=== PATIENT | female | born 1980 | race Caucasian/White ===

== ENCOUNTER 2016-07-02 10:00 | Emergency (ER) | payer OTHER ==
[2016-07-02 10:13] VITALS: RESP 16
--- NOTE | 2016-07-02 10:44 | ED ---
General Adult HPI - General Chief complaint: Chest Pain Stated complaint: left side pain, shoulder,chest pain x 3 days Time Seen by Provider: 07/02/16 10:15 Source: patient, RN notes reviewed Mode of arrival: ambulatory Limitations: no limitations - History of Present Illness Initial comments: Chief complaint and history of present illness this is a 36-year-old female complaint of pain to her left anterior and lower lateral rib cage for 3 days. Increasing over the past 3 days. Painful to take a deep breath painful to push on the area no rashes noted. She can't think of any particular injury. He does smoke she is on control. - Related Data Previous Rx's Medication Instructions Recorded Hydrocodone/Acetaminophen [[place] 1 each PO Q6HR PRN #20 tab 07/02/16 5-325] Ibuprofen [Motrin] 600 mg PO Q6HR PRN #20 tab 07/02/16 methylPREDNISolone Dose Pack 4 mg PO DIRECTED #21 package 07/02/16 [Medrol Dose Pack] Allergies Allergy/AdvReac Type Severity Reaction Status Date / Time Sulfa (Sulfonamide Allergy Anaphylaxis Verified 07/02/16 10:13 Antibiotics) Review of Systems ROS Statement: Those systems with pertinent positive or pertinent negative responses have been documented in the HPI. Review of systems no visual acuity changes no headache no neck pain patient has pain with breathing the left side of the chest as noted above feel short of breath because of the pain with difficulty breathing twisting turning moving bending especially coughing. No GI/ problems no complaint of a neuro deficits. No change in appetite. All systems were otherwise reviewed. Past medical problems significant for endometriosis, thyroid disorder which corrected itself after . She's had 2 laparoscopic surgeries for endometriosis and 2 C-sections. Family history unknown but does not know of any cancers. Patient does smoke strongly encouraged to stop she has ALLERGIES to sulfa. She does drink alcohol. 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 ROS Other: All systems not noted in ROS Statement are negative. Past Medical History Past Medical History: Thyroid Disorder Additional Past Medical History / Comment(s): Graves disease, endometriosis History of Any Multi-Drug Resistant Organisms: None Reported Past Surgical History: Section Past Psychological History: Depression Smoking Status: Current every day smoker Past Alcohol Use History: Occasional Past Drug Use History: None Reported General Exam - General Exam Comments Initial Comments: General: The patient is awake and alert, has acute discomfort with deep breathing and palpation of the left breast area. Vital signs shows temperature 98.5 pulse 89 respiratory rate 16 pulse 99% on room air. Blood pressure 134/84. Mildly elevated systolic diastolic noted patient will be referred to her family physician this week. Eye: Pupils are equal, round and reactive to light, extra-ocular movements are intact ; there is normal conjunctiva bilaterally. No signs of icterus. Ears, nose, mouth and throat: There are moist mucous membranes and no oral lesions. Neck: The neck is supple, there is no tenderness . No anterior cervical lymphadenopathy. Cardiovascular: There is a regular rate and rhythm. No murmur, rub or gallop is appreciated. Respiratory: Lungs are clear to auscultation, respirations are non-labored, breath sounds are equal. No wheezes, stridor, rales, or rhonchi. Pain with palpation of the anterior chest wall, no rashes noted. Shingles discussed. Splinting does not decrease the pain. Palpation does increase the pain. Coughing and deep breathing increases pain to the left chest area encircling the breast. No rash noted per patient. Gastrointestinal: Soft, non-distended, non-tender abdomen without masses or organomegaly noted. Back: There is no tenderness to palpation in the midline. There is no obvious deformity. No rashes noted. Musculoskeletal: Normal ROM, no tenderness, There is no pedal edema. There is no calf tenderness or swelling. Sensation intact. Pulses equal bilaterally 2+. Neurological: No evidence of her complaints of any neuro deficits. Skin: Skin is warm and dry and no rashes or lesions are noted. Limitations: no limitations Course Vital Signs 07/02/16 10:09 Temperature 98.5 F Pulse Rate 89 Respiratory 16 Rate Blood Pressure 134/84 O2 Sat by Pulse 99 Oximetry Medical Decision Making - Medical Decision Making Medical decision making; chest x-ray and left rib series were done and reviewed by radiologist his findings are the lungs are clear. Pleural spaces are clear. Heart size is normal. There is no pneumothorax. I do not see any displaced rib fracture. As reported by Dr. Buck ; final impression normal chest and left ribs. We discussed pleuritic pain as well as nondisplaced rib fracture and/or costochondritis. The patient will this time be placed on Medrol Dosepak and pain medication. Advised to splint the area as directed as needed. There is no signs of infection productive cough or pneumonia so no antibiotic be prescribed. Patient advised to follow-up with her family physician. Repeat chest x-ray may be necessary in a week to 10 days if pain persists. - Lab Data Lab Results 07/02/16 07/02/16 Range/Units 10:45 11:04 D-Dimer 0.28 (<0.60) mg/L FEU Urine HCG, Qual Not Detected (Not Detectd) Disposition Clinical Impression: Costochondritis, acute Disposition: HOME SELF-CARE Condition: Stable Instructions: Costochondritis (ED), Pleurisy (ED) Additional Instructions: Take medications as directed. Splint the area of the hand for comfort. Repeat chest x-ray may be necessary if still having pain in the week to 10 days from now. Follow with family physician Prescriptions: Hydrocodone/Acetaminophen [[place] 5-325] 1 each PO Q6HR PRN #20 tab PRN Reason: Pain Ibuprofen [Motrin] 600 mg PO Q6HR PRN #20 tab PRN Reason: Pain methylPREDNISolone Dose Pack [Medrol Dose Pack] 4 mg PO DIRECTED #21 package Time of Disposition: 11:59
--- NOTE | 2016-07-02 11:50 | XR ---
EXAMINATION TYPE: XR ribs LT w pa chest x-ray DATE OF EXAM ORDERED: 07/02/2016 11:42 AM HISTORY: Left-sided rib pain with breathing. COMPARISON: None. FINDINGS: The lungs are clear. Pleural space are clear. Heart size is normal. There is no pneumothor ax. I do not see a displaced rib fracture. IMPRESSION: NORMAL CHEST AND LEFT RIBS.
[2016-07-02 12:16] VITALS: BP 120/70; PULSE 78; TEMP 97.8
== END 2016-07-02 12:15 | disposition home or self-care (01) ==
LOC: EC 10:00
DX: M94.0 Chondrocostal junction syndrome [Tietze] (principal); M25.512 Pain in left shoulder; F17.200 Nicotine dependence, unspecified, uncomplicated; Z79.899 Other long term (current) drug therapy; Z88.2 Allergy status to sulfonamides
CPT/HCPCS: 36415; 81025; 85379; 99285

== ENCOUNTER 2017-09-03 21:22 | Emergency (ER) | payer OTHER ==
[2017-09-03] MEDS ORDERED: ONDANSETRON ODT 4 MG TAB PO STA (21:41)
--- NOTE | 2017-09-03 21:47 | ED ---
Abdominal Pain HPI - General Source: patient Mode of arrival: ambulatory Limitations: no limitations - History of Present Illness MD Complaint: abdominal pain -: days(s) (2) Location: epigastric Quality: aching, sharp Consistency: constant Improves With: nothing Worsens With: movement Context: foreign travel (Patient was in the vomitus 2 weeks ago) Associated Symptoms: nausea, vomiting <Hawa Man - Last Filed: 09/03/17 23:04> <Pavel Bell - Last Filed: 09/03/17 23:21> - General Chief Complaint: Abdominal Pain Stated Complaint: vomiting/rib pain Time Seen by Provider: 09/03/17 21:34 - History of Present Illness Initial Comments: 37-year-old female presents with epigastric pain for 2 days. Patient states is getting progressively worse in the she's tried multiple [id number] medications such as Tums. Patient states tonight she ended up feeling increase in pain and vomiting 3 times. Patient states it's pain in the midepigastric region with no radiation. No change of bowels no fevers. Patient does have history of left breast Surgery for endometriosis in 2 sections. No vaginal discharge patient states her menstrual cycles within normal limits. No fevers. No chest pain or shortness of breath. (Hawa Man) - Related Data Previous Rx's Medication Instructions Recorded Famotidine [Pepcid] 20 mg PO BID #14 tablet 09/03/17 Allergies Allergy/AdvReac Type Severity Reaction Status Date / Time Sulfa (Sulfonamide Allergy Anaphylaxis Verified 09/03/17 21:27 Antibiotics) Review of Systems ROS Other: All systems not noted in ROS Statement are negative. Constitutional: Denies: fever Respiratory: Denies: cough Gastrointestinal: Reports: abdominal pain (Epigastric), nausea, vomiting. Denies: diarrhea, constipation Genitourinary: Denies: urgency, dysuria Musculoskeletal: Denies: back pain <Hawa Man - Last Filed: 09/03/17 23:04> ROS Other: All systems not noted in ROS Statement are negative. <Pavel Bell - Last Filed: 09/03/17 23:21> ROS Statement: Those systems with pertinent positive or pertinent negative responses have been documented in the HPI. Past Medical History Past Medical History: Thyroid Disorder Additional Past Medical History / Comment(s): Graves disease, endometriosis History of Any Multi-Drug Resistant Organisms: None Reported Past Surgical History: Section Additional Past Surgical History / Comment(s): laporoscopy for endometrosis Past Psychological History: Depression Smoking Status: Current every day smoker Past Alcohol Use History: Occasional Past Drug Use History: None Reported <Hawa Man - Last Filed: 09/03/17 23:04> General Exam Limitations: no limitations General appearance: alert, in no apparent distress ENT exam: Present: normal exam, mucous membranes moist Respiratory exam: Present: normal lung sounds bilaterally. Absent: respiratory distress, wheezes, rales, rhonchi, stridor Cardiovascular Exam: Present: regular rate, normal rhythm, normal heart sounds. Absent: systolic murmur, diastolic murmur, rubs, gallop, clicks GI/Abdominal exam: Present: soft, tenderness (Epigastric), normal bowel sounds. Absent: distended, guarding, rebound, rigid Back exam: Present: normal inspection Neurological exam: Present: alert, oriented X3, CN II-XII intact Psychiatric exam: Present: normal affect, normal mood Skin exam: Present: warm, dry, intact, normal color. Absent: rash <Hawa Man - Last Filed: 09/03/17 23:04> Vital Signs 09/03/17 21:25 Temperature 98.2 F Pulse Rate 80 Respiratory 18 Rate Blood Pressure 120/80 O2 Sat by Pulse 99 Oximetry Medical Decision Making - Lab Data Result diagrams: 09/03/17 21:52 09/03/17 21:52 <Hawa Man - Last Filed: 09/03/17 23:04> - Lab Data Result diagrams: 09/03/17 21:52 09/03/17 21:52 <Pavel Bell - Last Filed: 09/03/17 23:21> - Medical Decision Making Discussed with Dr. Villalobos patient was evaluated by Dr. Villalobos we'll get GI cocktail. After 15-20 minutes patient did not have any relief from the GI cocktail, however her nausea has gone away with the Zofran. All lab work that has come back been done is normal. H. pylori will be a send out test will not get back right Away. Patient opted to get a CAT scan of her abdomen. Discussed at this time that she may need to follow up with outpatient GI for possible scope in the future. at 2304 I transferred care to Dr. Bell due to my shift ending (Hawa Man) - Lab Data Lab Results 09/03/17 09/03/17 Range/Units 21:52 21:52 WBC 10.4 (3.8-10.6) k/uL RBC 4.86 (3.80-5.40) m/uL Hgb 15.0 (11.4-16.0) gm/dL Hct 43.5 (34.0-46.0) % MCV 89.6 (80.0-100.0) fL MCH 30.8 (25.0-35.0) pg MCHC 34.4 (31.0-37.0) g/dL RDW 12.7 (11.5-15.5) % Plt Count 234 (150-450) k/uL Neutrophils % 76 % Lymphocytes % 18 % Monocytes % 4 % Eosinophils % 1 % Basophils % 1 % Neutrophils # 7.9 H (1.3-7.7) k/uL Lymphocytes # 1.8 (1.0-4.8) k/uL Monocytes # 0.4 (0-1.0) k/uL Eosinophils # 0.1 (0-0.7) k/uL Basophils # 0.1 (0-0.2) k/uL Sodium 141 (137-145) mmol/L Potassium 3.9 (3.5-5.1) mmol/L Chloride 99 (98-107) mmol/L Carbon Dioxide 28 (22-30) mmol/L Anion Gap 14 mmol/L BUN 15 (7-17) mg/dL Creatinine 0.60 (0.52-1.04) mg/dL Est GFR (CKD-EPI)AfAm >90 (>60 ml/min/1.73 sqM) Est GFR (CKD-EPI)NonAf >90 (>60 ml/min/1.73 sqM) Glucose 105 H (74-99) mg/dL Calcium 10.1 (8.4-10.2) mg/dL Total Bilirubin 0.4 (0.2-1.3) mg/dL AST 23 (14-36) U/L ALT 29 (9-52) U/L Alkaline Phosphatase 59 (38-126) U/L Total Protein 7.3 (6.3-8.2) g/dL Albumin 4.6 (3.5-5.0) g/dL Amylase 38 (30-110) U/L Lipase 41 (23-300) U/L Disposition Is patient prescribed a controlled substance at d/c from ED?: No <Hawa Man - Last Filed: 09/03/17 23:04> Is patient prescribed a controlled substance at d/c from ED?: No <Pavel Bell - Last Filed: 09/03/17 23:21> Clinical Impression: Epigastric abdominal pain, Nausea & vomiting Disposition: HOME SELF-CARE Condition: Good Instructions: Acute Nausea and Vomiting (ED), Abdominal Pain (ED) Prescriptions: Famotidine [Pepcid] 20 mg PO BID #14 tablet Referrals: None,Stated [Primary Care Provider] - 1-2 days Rick Arellano MD [STAFF PHYSICIAN] - 1-2 days Zo Austin MD [STAFF PHYSICIAN] - 1-2 days
[2017-09-03] MEDS ORDERED: SODIUM CHLORIDE 0.9% 1,000 ML IV STA (22:06)
[2017-09-03] MEDS ORDERED: MAG HYDROX/AL HYDROX/SIMETH 30 ML, HYOSCYAMINE ELIXIR 10 ML, CIMETIDINE HCL 300 MG, LID... PO STA ×4 (22:17)
[2017-09-03 22:29] LABS: Basophils # (A) 0.1 k/uL (0-0.2); Basophils % (A) 1 %; Eosinophils # (A) 0.1 k/uL (0-0.7); Eosinophils % (A) 1 %; HCT 43.5 % (34.0-46.0); Lymphocytes # (A) 1.8 k/uL (1.0-4.8); Lymphocytes % (A) 18 %; MCH 30.8 pg (25.0-35.0); MCHC 34.4 g/dL (31.0-37.0); MCV 89.6 fL (80.0-100.0); Mean Platelet Volume 7.2; Monocytes # (A) 0.4 k/uL (0-1.0); Monocytes % (A) 4 %; Neutrophils # (A) 7.9 k/uL (1.3-7.7); Neutrophils % (A) 76 %; Platelet Count 234 k/uL (150-450); RBC 4.86 m/uL (3.80-5.40); RDW 12.7 % (11.5-15.5); WBC 10.4 k/uL (3.8-10.6)
[2017-09-03 22:39] LABS: ALT 29 U/L (9-52); AST 23 U/L (14-36); Albumin 4.6 g/dL (3.5-5.0); Alkaline Phosphatase 59 U/L (38-126); Amylase 38 U/L (30-110); Anion Gap 14 mmol/L; Blood Urea Nitrogen 15 mg/dL (7-17); Calcium 10.1 mg/dL (8.4-10.2); Carbon Dioxide 28 mmol/L (22-30); Chloride 99 mmol/L (98-107); Glucose 105 mg/dL (74-99); Lipase 41 U/L (23-300); Potassium 3.9 mmol/L (3.5-5.1); Sodium 141 mmol/L (137-145); Total Bilirubin 0.4 mg/dL (0.2-1.3); Total Protein 7.3 g/dL (6.3-8.2)
[2017-09-03 23:44] VITALS: BP 124/77; PULSE 63; RESP 20; TEMP 98.3
== END 2017-09-03 23:43 | disposition home or self-care (01) ==
LOC: EC 21:22
DX: R10.13 Epigastric pain (principal); R11.2 Nausea with vomiting, unspecified; F17.200 Nicotine dependence, unspecified, uncomplicated; Z88.2 Allergy status to sulfonamides
CPT/HCPCS: 36415; 80053; 82150; 83690; 85025; 86677; 96360; 99283

== ENCOUNTER 2021-10-08 20:20 | Inpatient (IN) | payer OTHER ==
[2021-10-08] MEDS ORDERED: MAGNESIUM SULFATE-D5W PMX 1 GM in DEXTROSE/WATER 1 100ML.BAG IVPB STA (20:39)
--- NOTE | 2021-10-08 20:48 | ED ---
Alcohol HPI - General Chief Complaint: Alcohol Stated Complaint: Withdrawl Time Seen by Provider: 10/08/21 20:31 Source: patient, RN notes reviewed Mode of arrival: ambulatory Limitations: no limitations - History of Present Illness Initial Comments: Patient presents for symptoms of alcohol withdrawal. Patient states she is trying to quit drinking. Patient admits to drinking a half pint to a pint of hard liquor per day at a minimum. Patient stopped drinking yesterday but started having symptoms including tremor, anxiety, and some tactile disturbances. She denies any auditory or visual hallucinations. Patient states that due to the symptoms she took a shot of hard liquor at about 7 PM tonight. Patient has a history of thyroid disease. Patient denies any previous history of rehabilitation. No previous history of withdrawal seizures. Has had some nausea and vomiting. Denies any abdominal pain. No headache, no fever or chills, no changes in vision or hearing, no sore throat or difficulty with speech, no neck pain, no chest pain or shortness of breath, no abdominal pain, no nausea or vomiting, no changes in urination or bowel movements, no extremity pain, no skin rashes or lesions. MD Complaint: alcohol withdrawal Associated Symptoms: nausea, vomiting, diaphoresis, tremors - Related Data Home Medications Medication Instructions Recorded Confirmed Levothyroxine Sodium [Synthroid] 88 mcg PO DAILY 10/08/21 10/08/21 Pediatric Multivitamin No.30 2 tab PO DAILY 10/08/21 10/08/21 [Multivitamin Children's Gummies] Venlafaxine HCl [Effexor XR] 75 mg PO DAILY 10/08/21 10/08/21 busPIRone HCl [Buspar] 10 mg PO TID PRN 10/08/21 10/08/21 Allergies Allergy/AdvReac Type Severity Reaction Status Date / Time Sulfa (Sulfonamide Allergy Anaphylaxis Verified 10/08/21 22:39 Antibiotics) Review of Systems ROS Statement: Those systems with pertinent positive or pertinent negative responses have been documented in the HPI. ROS Other: All systems not noted in ROS Statement are negative. Past Medical History Past Medical History: Thyroid Disorder Additional Past Medical History / Comment(s): Graves disease, endometriosis History of Any Multi-Drug Resistant Organisms: None Reported Past Surgical History: Section Additional Past Surgical History / Comment(s): laporoscopy for endometrosis Past Psychological History: Depression Past Alcohol Use History: Occasional Past Drug Use History: None Reported - Past Family History Father Family Medical History: Diabetes Mellitus Additional Family Medical History / Comment(s): Alcoholic, mental health issues Mother Family Medical History: Diabetes Mellitus Son(s) Family Medical History: Diabetes Mellitus General Exam - General Exam Comments Initial Comments: Patient does not appear to be ill or toxic. Vital signs reviewed. Limitations: no limitations General appearance: alert, in distress Head exam: Present: atraumatic, normocephalic, normal inspection Eye exam: Present: normal appearance, PERRL, EOMI, nystagmus (Nonspecific lateral beats). Absent: scleral icterus, conjunctival injection, periorbital swelling ENT exam: Present: normal exam, normal oropharynx, mucous membranes moist. Absent: mucous membranes dry Neck exam: Present: normal inspection, full ROM. Absent: tenderness, meningismus, lymphadenopathy Respiratory exam: Present: normal lung sounds bilaterally. Absent: respiratory distress, wheezes, rales, rhonchi, stridor Cardiovascular Exam: Present: regular rate, normal rhythm, normal heart sounds. Absent: systolic murmur, diastolic murmur, rubs, gallop, clicks GI/Abdominal exam: Present: soft, normal bowel sounds. Absent: distended, tenderness, guarding, rebound, rigid Extremities exam: Present: normal inspection, full ROM, normal capillary refill. Absent: tenderness, pedal edema, joint swelling, calf tenderness Back exam: Present: normal inspection Neurological exam: Present: alert, oriented X3, CN II-XII intact, normal gait, other (Generalized tremor noted) Psychiatric exam: Present: normal affect, agitated, anxious. Absent: homicidal ideation, suicidal ideation Skin exam: Present: warm, dry, intact, normal color. Absent: rash Course Vital Signs 10/08/21 10/08/21 20:26 23:34 Temperature 97.7 F Pulse Rate 92 Respiratory 16 Rate Blood Pressure 150/84 124/87 O2 Sat by Pulse 99 Oximetry - Reevaluation(s) Reevaluation #1: 10/08/21 22:16 Medical record is reviewed Symptoms are improved here in the emergency department Patient is informed of results and questions answered Patient in no distress - Consultations Consultation #1: Case discussed in detail Dr. Arellano. Medical Decision Making - Medical Decision Making Patient an initial CIWA score is 9, 1 for mild nausea and vomiting, 3 more severe symptoms of tremor, 1 for mild sweating, 2 anxiety, 1 for agitation, one for tactile disturbances. Patient septostomy consistent with alcohol withdrawal Patient reevaluated, patient magnesium low at 1.3. We will replace. Discussed with the patient's PCP. Patient meets criteria for admission. Discussed admission with the patient. She consents to this. We'll order the withdrawal protocol. The case was discussed in detail with ED attending physician. Presentation, findings, treatment plan discussed in detail. Patient has magnesium 1.3 and phosphorus of 1.9. Patient to be admitted for alcohol withdrawal Executive Director Of Marketing, Dr. Villalpando - Lab Data Result diagrams: 10/08/21 21:12 10/09/21 05:52 Lab Results 10/08/21 10/08/21 10/08/21 Range/Units 20:40 20:40 21:12 WBC 8.5 (3.8-10.6) k/uL RBC 4.07 (3.80-5.40) m/uL Hgb 13.2 (11.4-16.0) gm/dL Hct 38.1 (34.0-46.0) % MCV 93.8 (80.0-100.0) fL MCH 32.5 (25.0-35.0) pg MCHC 34.7 (31.0-37.0) g/dL RDW 12.2 (11.5-15.5) % Plt Count 159 (150-450) k/uL MPV 9.1 Neutrophils % 84 % Lymphocytes % 11 % Monocytes % 4 % Eosinophils % 0 % Basophils % 1 % Neutrophils # 7.1 (1.3-7.7) k/uL Lymphocytes # 0.9 L (1.0-4.8) k/uL Monocytes # 0.3 (0-1.0) k/uL Eosinophils # 0.0 (0-0.7) k/uL Basophils # 0.1 (0-0.2) k/uL PT (9.0-12.0) sec INR (<1.2) Sodium (137-145) mmol/L Potassium (3.5-5.1) mmol/L Chloride (98-107) mmol/L Carbon Dioxide (22-30) mmol/L Anion Gap mmol/L BUN (7-17) mg/dL Creatinine (0.52-1.04) mg/dL Est GFR (CKD-EPI)AfAm (>60 ml/min/1.73 sqM) Est GFR (CKD-EPI)NonAf (>60 ml/min/1.73 sqM) Glucose (74-99) mg/dL Calcium (8.4-10.2) mg/dL Phosphorus (2.5-4.5) mg/dL Magnesium (1.6-2.3) mg/dL Total Bilirubin (0.2-1.3) mg/dL AST (14-36) U/L ALT (4-34) U/L Alkaline Phosphatase (38-126) U/L Total Protein (6.3-8.2) g/dL Albumin (3.5-5.0) g/dL Lipase (23-300) U/L Urine Color Yellow Urine Appearance Clear (Clear) Urine pH 7.0 (5.0-8.0) Ur Specific [place] 1.006 (1.001-1.035) Urine Protein Trace H (Negative) Urine Glucose (UA) Negative (Negative) Urine Ketones Negative (Negative) Urine Blood Negative (Negative) Urine Nitrite Negative (Negative) Urine Bilirubin Negative (Negative) Urine Urobilinogen <2.0 (<2.0) mg/dL Ur Leukocyte Esterase Negative (Negative) Urine HCG, Qual Not Detected (Not Detectd) Urine Opiates Screen Not Detected (NotDetected) Ur Oxycodone Screen Not Detected (NotDetected) Urine Methadone Screen Not Detected (NotDetected) Ur Propoxyphene Screen Not Detected (NotDetected) Ur Barbiturates Screen Not Detected (NotDetected) U Tricyclic Antidepress Not Detected (NotDetected) Ur Phencyclidine Scrn Not Detected (NotDetected) Ur Amphetamines Screen Not Detected (NotDetected) U Methamphetamines Scrn Not Detected (NotDetected) U Benzodiazepines Scrn Not Detected (NotDetected) Urine Cocaine Screen Not Detected (NotDetected) U Marijuana (THC) Screen Not Detected (NotDetected) Serum Alcohol mg/dL 10/08/21 10/08/21 Range/Units 21:12 21:12 WBC (3.8-10.6) k/uL RBC (3.80-5.40) m/uL Hgb (11.4-16.0) gm/dL Hct (34.0-46.0) % MCV (80.0-100.0) fL MCH (25.0-35.0) pg MCHC (31.0-37.0) g/dL RDW (11.5-15.5) % Plt Count (150-450) k/uL MPV Neutrophils % % Lymphocytes % % Monocytes % % Eosinophils % % Basophils % % Neutrophils # (1.3-7.7) k/uL Lymphocytes # (1.0-4.8) k/uL Monocytes # (0-1.0) k/uL Eosinophils # (0-0.7) k/uL Basophils # (0-0.2) k/uL PT 12.8 H (9.0-12.0) sec INR 1.2 H (<1.2) Sodium 134 L (137-145) mmol/L Potassium 4.0 (3.5-5.1) mmol/L Chloride 98 (98-107) mmol/L Carbon Dioxide 27 (22-30) mmol/L Anion Gap 9 mmol/L BUN 7 (7-17) mg/dL Creatinine 0.50 L (0.52-1.04) mg/dL Est GFR (CKD-EPI)AfAm >90 (>60 ml/min/1.73 sqM) Est GFR (CKD-EPI)NonAf >90 (>60 ml/min/1.73 sqM) Glucose 107 H (74-99) mg/dL Calcium 9.3 (8.4-10.2) mg/dL Phosphorus 1.9 L (2.5-4.5) mg/dL Magnesium 1.3 L (1.6-2.3) mg/dL Total Bilirubin 0.8 (0.2-1.3) mg/dL AST 75 H (14-36) U/L ALT 37 H (4-34) U/L Alkaline Phosphatase 101 (38-126) U/L Total Protein 7.6 (6.3-8.2) g/dL Albumin 4.6 (3.5-5.0) g/dL Lipase 57 (23-300) U/L Urine Color Urine Appearance (Clear) Urine pH (5.0-8.0) Ur Specific [place] (1.001-1.035) Urine Protein (Negative) Urine Glucose (UA) (Negative) Urine Ketones (Negative) Urine Blood (Negative) Urine Nitrite (Negative) Urine Bilirubin (Negative) Urine Urobilinogen (<2.0) mg/dL Ur Leukocyte Esterase (Negative) Urine HCG, Qual (Not Detectd) Urine Opiates Screen (NotDetected) Ur Oxycodone Screen (NotDetected) Urine Methadone Screen (NotDetected) Ur Propoxyphene Screen (NotDetected) Ur Barbiturates Screen (NotDetected) U Tricyclic Antidepress (NotDetected) Ur Phencyclidine Scrn (NotDetected) Ur Amphetamines Screen (NotDetected) U Methamphetamines Scrn (NotDetected) U Benzodiazepines Scrn (NotDetected) Urine Cocaine Screen (NotDetected) U Marijuana (THC) Screen (NotDetected) Serum Alcohol <10 mg/dL Disposition Clinical Impression: Alcohol withdrawal syndrome, Hypomagnesemia, Hypophosphatemia Disposition: ADMITTED IP TO THIS [facility] Condition: Fair Is patient prescribed a controlled substance at d/c from ED?: No Time of Disposition: 21:37 Decision to Admit Reason: Admit from EC Decision Time: 21:37
[2021-10-08] MEDS ORDERED: ONDANSETRON 4 MG/2 ML VIAL IVP STA (21:37)
[2021-10-08 21:43] LABS: Basophils # (A) 0.1 k/uL (0-0.2); Basophils % (A) 1 %; Eosinophils % (A) 0 %; HCT 38.1 % (34.0-46.0); HGB 13.2 gm/dL (11.4-16.0); Lymphocytes # (A) 0.9 k/uL (1.0-4.8); Lymphocytes % (A) 11 %; MCH 32.5 pg (25.0-35.0); MCHC 34.7 g/dL (31.0-37.0); MCV 93.8 fL (80.0-100.0); Mean Platelet Volume 9.1; Monocytes # (A) 0.3 k/uL (0-1.0); Monocytes % (A) 4 %; Neutrophils # (A) 7.1 k/uL (1.3-7.7); Neutrophils % (A) 84 %; Platelet Count 159 k/uL (150-450); RBC 4.07 m/uL (3.80-5.40); RDW 12.2 % (11.5-15.5); WBC 8.5 k/uL (3.8-10.6)
[2021-10-08 21:56] LABS: INR 1.2 (<1.2); Prothrombin Time 12.8 sec (9.0-12.0)
[2021-10-08] MEDS ORDERED: SODIUM CHLORIDE 0.9% 1,000 ML with THIAMINE 100 MG, FOLIC ACID 1 MG IV ONE ×3 (22:00)
[2021-10-08 22:11] LABS: ALT 37 U/L (4-34); AST 75 U/L (14-36); African American GFR (CKD) >90 (>60 ml/min/1.73 sqM); Albumin 4.6 g/dL (3.5-5.0); Alcohol <10 mg/dL; Alkaline Phosphatase 101 U/L (38-126); Anion Gap 9 mmol/L; Blood Urea Nitrogen 7 mg/dL (7-17); Calcium 9.3 mg/dL (8.4-10.2); Carbon Dioxide 27 mmol/L (22-30); Chloride 98 mmol/L (98-107); Glucose 107 mg/dL (74-99); Lipase 57 U/L (23-300); Magnesium 1.3 mg/dL (1.6-2.3); Non-African American GFR(CKD) >90 (>60 ml/min/1.73 sqM); Phosphorus 1.9 mg/dL (2.5-4.5); Sodium 134 mmol/L (137-145); Total Bilirubin 0.8 mg/dL (0.2-1.3); Total Protein 7.6 g/dL (6.3-8.2)
[2021-10-08 22:11] LABS: Appearance,Urine Clear (Clear); Bilirubin,Urine Negative (Negative); Blood,Urine Negative (Negative); Color,Urine Yellow; Glucose,Urine (UA) Negative (Negative); Ketones,Urine Negative (Negative); Leukocyte Esterase,Urine Negative (Negative); Nitrite,Urine Negative (Negative); Protein,Urine Trace (Negative); Specific Gravity,Urine 1.006 (1.001-1.035); Urobilinogen,Urine <2.0 mg/dL (<2.0)
[2021-10-08] MEDS ORDERED: ONDANSETRON 4 MG/2 ML VIAL IVP PRN (22:17)
[2021-10-08] MEDS ORDERED: ACETAMINOPHEN TAB 325 MG TAB PO PRN (22:17)
[2021-10-08 22:21] LABS: Amphetamine Screen,Urine Not Detected (NotDetected); Barbiturate Screen,Urine Not Detected (NotDetected); Benzodiazepines Screen,Urine Not Detected (NotDetected); Cocaine Screen,Urine Not Detected (NotDetected); Methadone Screen, Urine Not Detected (NotDetected); Opiate Screen,Urine Not Detected (NotDetected); Oxycodone Screen, Urine Not Detected (NotDetected); Phencyclidine Screen,Urine Not Detected (NotDetected); Tricyclic Antidepressant,Urine Not Detected (NotDetected); Urn Cannabinoid Scrn Not Detected (NotDetected)
[2021-10-08] MEDS ORDERED: MAGNESIUM SULFATE-D5W PMX 1 GM in DEXTROSE/WATER 1 100ML.BAG IVPB SCH (22:30)
[2021-10-08] MEDS: THIAMINE 100 MG TAB PO SCH (23:33)
[2021-10-09] MEDS: MAGNESIUM SULFATE-D5W PMX 1 GM in DEXTROSE/WATER 1 100ML.BAG IVPB SCH ×2 (01:20→02:31)
[2021-10-09 06:37] LABS: African American GFR (CKD) >90 (>60 ml/min/1.73 sqM); Anion Gap 3 mmol/L; Blood Urea Nitrogen 6 mg/dL (7-17); Calcium 8.2 mg/dL (8.4-10.2); Carbon Dioxide 31 mmol/L (22-30); Chloride 100 mmol/L (98-107); Glucose 84 mg/dL (74-99); Magnesium 2.7 mg/dL (1.6-2.3); Non-African American GFR(CKD) >90 (>60 ml/min/1.73 sqM); Potassium 3.4 mmol/L (3.5-5.1); Sodium 134 mmol/L (137-145)
[2021-10-09] MEDS: THIAMINE 100 MG TAB PO SCH ×2 (07:59→17:16)
[2021-10-10] MEDS ORDERED: LEVOTHYROXINE 88 MCG TAB PO SCH (06:30)
[2021-10-10] MEDS: THIAMINE 100 MG TAB PO SCH (08:17)
[2021-10-10 08:27] VITALS: BP 130/83; PULSE 57; RESP 16; TEMP 97.4
[2021-10-10] MEDS ORDERED: VENLAFAXINE HCL ER 75 MG CAP PO SCH (09:00)
--- NOTE | 2021-10-11 07:48 | HP ---
HISTORY AND PHYSICAL CHIEF COMPLAINT: Acute alcohol intoxication and DTs. HISTORY OF PRESENT ILLNESS: This is the first known admission for this 41-year-old chronic alcoholic. She came in acutely intoxicated and in DTs. In the emergency room, her potassium was 3.4. AST was 75 and ALT was 37. REVIEW OF SYSTEMS: Is otherwise unremarkable. She thinks she may have had some blackouts in the past. She has had no seizure activity. She denies any focal neurologic problems, chest pain, shortness of breath, abdominal pain, jaundice, hematemesis, melena, hematochezia, urinary complaints, etc. Past medical history, family history, personal and social history is all reviewed She takes Buspar, Pepcid and She has a strong family history of alcoholism. PHYSICAL EXAMINATION: Blood pressure 175/90 with a pulse of 88, respirations 14 and she is afebrile. In general, she appeared to be in no acute distress. She was slightly tremulous. There was no strabismus. Head, ears, nose, mouth, and throat were normal. Chest is clear. Cardiac exam is normal. Abdomen soft and nontender. Extremities: Normal. Neurologically intact. IMPRESSION: She is admitted to the hospital to diagnoses of: 1. Delirium tremens. 2. Acute alcohol intoxication. 3. Chronic alcoholism. 4. Depression. PLAN: 1. Bed rest. 2. CIWA protocol. ILIANA / JEANETTE: [id number] /
--- NOTE | 2021-10-11 07:51 | PN ---
PROGRESS NOTE DATE OF SERVICE: 10/09/2021 CHIEF COMPLAINT: DTs. HISTORY OF PRESENT ILLNESS: This lady is still quite tremulous. She is awake, alert. She has had no seizures. PHYSICAL EXAMINATION: Chest is clear. Cardiac exam demonstrates tachycardia. Abdomen is soft and nontender. IMPRESSION: Delirium tremens. PLAN: Continue with [facility] protocol and plan to hold for another day. MMODL / IJN: [id number] /
--- NOTE | 2021-10-11 19:39 | DS ---
DISCHARGE SUMMARY CHIEF COMPLAINT: Acute alcohol intoxication and DTs. HISTORY OF PRESENT ILLNESS AND PHYSICAL EXAMINATION: Details of this lady's history and physical can be found in the initial workup. LABORATORY STUDIES: While she was in the hospital she had laboratory studies, details of which can be found in the laboratory section of her chart. COURSE IN THE HOSPITAL: After admission she was placed on bedrest, started on CIWA protocol. She did well. She was stable and out of DTs and it was felt that she could go home on October 10. She will go home on her usual activity and usual medications and be seen in the office in the next 2 or 3 days. At that time, we will talk to her about Vivrinal and Campral. MMODL / IJN: [id number] /
== END 2021-10-10 11:35 | disposition home or self-care (01) | DRG 897 ==
LOC: EC 20:20 → 4SSUR 22:37
PROVIDERS: ADMIT Family Medicine; ATTEND Family Medicine
PROC: HZ2ZZZZ Detoxification Services for Substance Abuse Treatment (ICD-10-PCS; principal; 2021-10-08)
DX: F10.231 Alcohol dependence with withdrawal delirium (principal); F10.229 Alcohol dependence with intoxication, unspecified; E83.39 Other disorders of phosphorus metabolism; E83.42 Hypomagnesemia; R00.0 Tachycardia, unspecified; F32.A Depression, unspecified; F41.9 Anxiety disorder, unspecified; Z79.890 Hormone replacement therapy; Z83.3 Family history of diabetes mellitus; Z88.2 Allergy status to sulfonamides; Z87.42 Personal history of other diseases of the female genital tract
CPT/HCPCS: 36415; 80048; 80053; 80306; 80320; 81003; 81025; 83690; 83735; 84100; 85025; 85610; 96365; 96366; 96368; 96375; 99285

== ENCOUNTER 2021-11-10 11:31 | Inpatient (IN) | payer OTHER ==
[2021-11-10] MEDS ORDERED: THIAMINE 100 MG/ML 2 ML VIAL IM STA (16:07)
[2021-11-10] MEDS ORDERED: LORazepam 2 MG/ML INJ IV PRN ×3 (16:07)
[2021-11-10] MEDS ORDERED: chlordiazePOXIDE 25 MG CAP PO PRN ×2 (16:09)
[2021-11-10] MEDS ORDERED: SODIUM CHLORIDE 0.9% 1,000 ML IV ONE (16:09)
[2021-11-10] MEDS ORDERED: ONDANSETRON 4 MG/2 ML VIAL IVP STA (16:09)
[2021-11-10 17:31] LABS: Basophils # (A) 0.1 k/uL (0-0.2); Basophils % (A) 1 %; Eosinophils # (A) 0.1 k/uL (0-0.7); Eosinophils % (A) 1 %; HCT 39.6 % (34.0-46.0); HGB 12.9 gm/dL (11.4-16.0); Lymphocytes # (A) 1.4 k/uL (1.0-4.8); Lymphocytes % (A) 24 %; MCH 31.5 pg (25.0-35.0); MCHC 32.6 g/dL (31.0-37.0); MCV 96.8 fL (80.0-100.0); Mean Platelet Volume 8.2; Monocytes # (A) 0.2 k/uL (0-1.0); Monocytes % (A) 4 %; Neutrophils # (A) 4.1 k/uL (1.3-7.7); Neutrophils % (A) 69 %; Platelet Count 208 k/uL (150-450); RBC 4.09 m/uL (3.80-5.40); RDW 12.4 % (11.5-15.5); WBC 5.9 k/uL (3.8-10.6)
[2021-11-10 17:36] LABS: ALT 28 U/L (4-34); AST 49 U/L (14-36); African American GFR (CKD) >90 (>60 ml/min/1.73 sqM); Albumin 4.2 g/dL (3.5-5.0); Alkaline Phosphatase 77 U/L (38-126); Anion Gap 14 mmol/L; Blood Urea Nitrogen 8 mg/dL (7-17); Calcium 8.7 mg/dL (8.4-10.2); Carbon Dioxide 23 mmol/L (22-30); Chloride 103 mmol/L (98-107); Glucose 73 mg/dL (74-99); Non-African American GFR(CKD) >90 (>60 ml/min/1.73 sqM); Potassium 3.7 mmol/L (3.5-5.1); Sodium 140 mmol/L (137-145); Total Bilirubin 0.4 mg/dL (0.2-1.3); Total Protein 6.7 g/dL (6.3-8.2)
[2021-11-10] MEDS: chlordiazePOXIDE 25 MG CAP PO PRN ×2 (18:32→22:55)
[2021-11-10] MEDS ORDERED: NALOXONE 0.4 MG/ML 1 ML VIAL IV PRN (19:57)
--- NOTE | 2021-11-10 19:57 | ED ---
Alcohol HPI - General Chief Complaint: Alcohol Stated Complaint: ETOH Time Seen by Provider: 11/10/21 15:33 Source: patient Mode of arrival: ambulatory Limitations: no limitations - History of Present Illness Initial Comments: 41-year-old female with past medical history of Graves' disease presents emergency department with alcohol withdrawal. States that she drinks a half a pint a day. She was hospitalized 1 month ago for alcohol withdrawal. She was sober for a week and half before she relapsed. Last drink was this morning. She has had nausea and vomiting as well as tremors throughout the day and she did not continue drinking. Presents today for help. She denies having seizures from alcohol withdrawal - Related Data Home Medications Medication Instructions Recorded Confirmed Levothyroxine Sodium [Synthroid] 88 mcg PO DAILY 10/08/21 11/10/21 Pediatric Multivitamin No.30 2 tab PO DAILY 10/08/21 11/10/21 [Multivitamin Children's Gummies] Venlafaxine HCl [Effexor XR] 75 mg PO DAILY 10/08/21 11/10/21 busPIRone HCl [Buspar] 10 mg PO TID PRN 10/08/21 11/10/21 Previous Rx's Medication Instructions Recorded Acamprosate Calcium [Campral] 666 mg PO TID #90 tab 11/12/21 Thiamine [Vitamin B-1] 100 mg PO BID-W/MEALS #120 tab 11/12/21 Allergies Allergy/AdvReac Type Severity Reaction Status Date / Time Sulfa (Sulfonamide Allergy Anaphylaxis Verified 11/10/21 16:40 Antibiotics) Review of Systems ROS Statement: Those systems with pertinent positive or pertinent negative responses have been documented in the HPI. ROS Other: All systems not noted in ROS Statement are negative. Past Medical History Past Medical History: Thyroid Disorder Additional Past Medical History / Comment(s): Graves disease, endometriosis History of Any Multi-Drug Resistant Organisms: None Reported Past Surgical History: Section Additional Past Surgical History / Comment(s): laporoscopy for endometrosis Past Anesthesia/Blood Transfusion Reactions: No Reported Reaction Past Psychological History: Depression Smoking Status: Vaper Past Alcohol Use History: Heavy Past Drug Use History: None Reported - Past Family History Father Family Medical History: Diabetes Mellitus Additional Family Medical History / Comment(s): Alcoholic, mental health issues Mother Family Medical History: Diabetes Mellitus Son(s) Family Medical History: Diabetes Mellitus General Exam Limitations: no limitations General appearance: alert, other (tremors) Head exam: Present: atraumatic, normocephalic, normal inspection Eye exam: Present: normal appearance, PERRL, EOMI. Absent: scleral icterus, conjunctival injection, periorbital swelling ENT exam: Present: normal exam, mucous membranes moist Neck exam: Present: normal inspection. Absent: tenderness, meningismus, lymphadenopathy Respiratory exam: Present: normal lung sounds bilaterally. Absent: respiratory distress, wheezes, rales, rhonchi, stridor Cardiovascular Exam: Present: regular rate, normal rhythm, normal heart sounds. Absent: systolic murmur, diastolic murmur, rubs, gallop, clicks GI/Abdominal exam: Present: soft, normal bowel sounds. Absent: distended, tend erness, guarding, rebound, rigid Extremities exam: Present: normal inspection, full ROM, normal capillary refill. Absent: tenderness, pedal edema, joint swelling, calf tenderness Back exam: Present: normal inspection Neurological exam: Present: alert, oriented X3, CN II-XII intact Psychiatric exam: Present: normal affect, normal mood Skin exam: Present: warm, dry, intact, normal color. Absent: rash Course Vital Signs 11/10/21 11/10/21 11:52 20:00 Temperature 98.6 F 98.9 F Pulse Rate 79 74 Respiratory 20 14 Rate Blood Pressure 149/96 155/82 O2 Sat by Pulse 96 100 Oximetry Medical Decision Making - Medical Decision Making On arrival patient was placed into bed 19. History and physical exam was performed. CIWA scale is obtained and the patient does have a score of 9. IV is established and patient provided fluids, Zofran and Librium. I recommended admission for which the patient agreed to. Spoke with Dr. Arellano who agreed to admit the patient. - Lab Data Result diagrams: 11/11/21 05:54 11/11/21 05:54 Lab Results 11/10/21 11/10/21 Range/Units 17:14 17:14 WBC 5.9 (3.8-10.6) k/uL RBC 4.09 (3.80-5.40) m/uL Hgb 12.9 (11.4-16.0) gm/dL Hct 39.6 (34.0-46.0) % MCV 96.8 (80.0-100.0) fL MCH 31.5 (25.0-35.0) pg MCHC 32.6 (31.0-37.0) g/dL RDW 12.4 (11.5-15.5) % Plt Count 208 (150-450) k/uL MPV 8.2 Neutrophils % 69 % Lymphocytes % 24 % Monocytes % 4 % Eosinophils % 1 % Basophils % 1 % Neutrophils # 4.1 (1.3-7.7) k/uL Lymphocytes # 1.4 (1.0-4.8) k/uL Monocytes # 0.2 (0-1.0) k/uL Eosinophils # 0.1 (0-0.7) k/uL Basophils # 0.1 (0-0.2) k/uL Sodium 140 (137-145) mmol/L Potassium 3.7 (3.5-5.1) mmol/L Chloride 103 (98-107) mmol/L Carbon Dioxide 23 (22-30) mmol/L Anion Gap 14 mmol/L BUN 8 (7-17) mg/dL Creatinine 0.61 (0.52-1.04) mg/dL Est GFR (CKD-EPI)AfAm >90 (>60 ml/min/1.73 sqM) Est GFR (CKD-EPI)NonAf >90 (>60 ml/min/1.73 sqM) Glucose 73 L (74-99) mg/dL Calcium 8.7 (8.4-10.2) mg/dL Total Bilirubin 0.4 (0.2-1.3) mg/dL AST 49 H (14-36) U/L ALT 28 (4-34) U/L Alkaline Phosphatase 77 (38-126) U/L Total Protein 6.7 (6.3-8.2) g/dL Albumin 4.2 (3.5-5.0) g/dL Disposition Clinical Impression: Alcohol withdrawal syndrome Disposition: ADMITTED IP TO THIS [facility] Condition: Serious Is patient prescribed a controlled substance at d/c from ED?: No Time of Disposition: 19:56 Decision to Admit Reason: Admit from EC Decision Date: 11/10/21 Decision Time: 19:56
[2021-11-10] MEDS: SODIUM CHLORIDE 0.9% 1,000 ML IV SCH (20:05)
[2021-11-10 22:06] LABS: Appearance,Urine Clear (Clear); Bilirubin,Urine Negative (Negative); Blood,Urine Negative (Negative); Color,Urine Light Yellow; Glucose,Urine (UA) Negative (Negative); Ketones,Urine Trace (Negative); Leukocyte Esterase,Urine Negative (Negative); Nitrite,Urine Negative (Negative); Protein,Urine Negative (Negative); Specific Gravity,Urine 1.011 (1.001-1.035); Urobilinogen,Urine <2.0 mg/dL (<2.0)
[2021-11-10] MEDS: ACETAMINOPHEN TAB 325 MG TAB PO PRN (22:54)
[2021-11-11] MEDS ORDERED: busPIRone HCl 10 MG TAB PO PRN (01:30)
[2021-11-11] MEDS: chlordiazePOXIDE 25 MG CAP PO PRN ×4 (03:57→21:29)
[2021-11-11] MEDS: ONDANSETRON 4 MG/2 ML VIAL IVP PRN ×2 (03:57→11:23)
[2021-11-11] MEDS: LEVOTHYROXINE 88 MCG TAB PO SCH (05:50)
[2021-11-11] MEDS: SODIUM CHLORIDE 0.9% 1,000 ML IV SCH ×3 (05:51→20:00)
[2021-11-11] MEDS: THIAMINE 100 MG TAB PO SCH ×2 (08:35→18:07)
[2021-11-11] MEDS: MULTIVITAMINS, PEDIATRIC 1 EACH CHEWABLE PO SCH (08:35)
[2021-11-11] MEDS: VENLAFAXINE HCL ER 75 MG CAP PO SCH (08:35)
[2021-11-11 09:00] LABS: Basophils # (A) 0.03 X 10*3/uL (0.00-0.10); Basophils % (A) 0.7 %; Eosinophils # (A) 0.12 X 10*3/uL (0.04-0.35); Eosinophils % (A) 2.6 %; HCT 35.9 % (37.2-46.3); HGB 11.8 g/dL (12.0-15.0); Immature Grans, Automated 0.2 %; Lymphocytes # (A) 1.85 X 10*3/uL (0.90-5.00); Lymphocytes % (A) 40.8 %; MCH 31.8 pg (27.0-32.0); MCHC 32.9 g/dL (32.0-37.0); MCV 96.8 fL (80.0-97.0); Mean Platelet Volume 11.2 fL (9.5-12.2); Monocytes # (A) 0.45 X 10*3/uL (0.20-1.00); Monocytes % (A) 9.9 %; NRBC Per 100 WBC 0 /100 WBCS (0.0-0.0); Neutrophils # (A) 2.07 X 10*3/uL (1.80-7.70); Neutrophils % (A) 45.8 %; Platelet Count 173 X 10*3/uL (140-440); RBC 3.71 X 10*6/uL (4.10-5.20); RDW 12.8 % (11.5-14.5); WBC 4.53 X 10*3/uL (4.50-10.00)
[2021-11-11 09:18] LABS: African American GFR (CKD) 133.1 (60.0-200.0); Anion Gap 5.1 mmol/L (10.00-18.00); BUN/Creat Ratio 16.83 Ratio (12.00-20.00); Blood Urea Nitrogen 10.1 mg/dL (9.0-27.0); Calcium 8.5 mg/dL (8.7-10.3); Carbon Dioxide 27.9 mmol/L (20.0-27.5); Non-African American GFR(CKD) 114.8 (60.0-200.0); Potassium 4.2 mmol/L (3.5-5.5)
[2021-11-11] MEDS: ACETAMINOPHEN TAB 325 MG TAB PO PRN (13:04)
[2021-11-11] MEDS: ACAMPROSATE CALCIUM 333 MG TABLET.DR PO SCH ×2 (15:53→21:24)
[2021-11-11 18:26] VITALS: RESP 16
--- NOTE | 2021-11-12 02:07 | HP ---
HISTORY AND PHYSICAL CHIEF COMPLAINT: Nausea, vomiting, and acute alcohol intoxication. HISTORY OF PRESENT ILLNESS: This is an another admission for this 41-year-old white female, who was . She was in a hospital recently with acute alcohol withdrawal. She went home and was stable for a short period of time, then started drinking again. She drinks about half a pint a day by her own admission. She apparently had tried to stop, came in the emergency room with intractable nausea and vomiting. She stated that the emesis could have looked like coffee-ground material. She has never had an upper GI bleed. She has no chest pain or abdominal pain. She has not had blackouts or seizures. REVIEW OF SYSTEMS: Otherwise normal. Past medical history, family history, personal and social history are unremarkable and noncontributory otherwise except that she is allergic to sulfa. She is on and BuSpar. She does vape. PHYSICAL EXAMINATION: VITAL SIGNS: Blood pressure is 149/96 with a pulse of 94, respirations of 35, and she is afebrile. GENERAL: She appeared to be acutely ill. SKIN: Tanned. There is no jaundice or icterus. HEAD, EARS, EYES, NOSE, MOUTH, AND THROAT: Otherwise normal. CHEST: Clear. CARDIAC: Demonstrated sinus rhythm with no murmurs or extra sounds. ABDOMEN: Flat, soft and nontender without any masses or visceromegaly. Bowel sounds are present. EXTREMITIES: Normal. NEUROLOGICAL: She is intact. She was slightly tremulous. IMPRESSION: 1. Intractable nausea and vomiting. 2. Alcoholic gastritis. 3. Chronic alcoholism. 4. Acute alcohol intoxication. 5. Delirium tremens. 6. Depression. 7. Hypothyroidism. PLAN: 1. Bedrest. 2. IV fluids. 3. Antiemetics. 4. CIWA protocol. MMODL / IJN: [id number] /
[2021-11-12] MEDS: ONDANSETRON 4 MG/2 ML VIAL IVP PRN (02:46)
[2021-11-12] MEDS: SODIUM CHLORIDE 0.9% 1,000 ML IV SCH ×2 (03:22→10:09)
--- NOTE | 2021-11-12 03:28 | PN ---
PROGRESS NOTE CHIEF COMPLAINT: Acute alcohol intoxication, vomiting, and DTs. HISTORY OF PRESENT ILLNESS: This lady seems stable today and does not seem particularly tremulous. She is not vomiting now. PHYSICAL EXAMINATION: CHEST: Clear. CARDIAC: Normal. ABDOMEN: Soft, nontender. IMPRESSION: 1. Intractable nausea and vomiting. 2. Acute alcohol intoxication. 3. Chronic alcoholism. 4. Delirium tremens. 5. Depression. PLAN: Continue with the protocol and she might be able to go home tomorrow. I will also try starting her on Campral. MMODL / IJN: [id number] /
[2021-11-12] MEDS: LEVOTHYROXINE 88 MCG TAB PO SCH (05:55)
[2021-11-12] MEDS: MULTIVITAMINS, PEDIATRIC 1 EACH CHEWABLE PO SCH (07:53)
[2021-11-12] MEDS: VENLAFAXINE HCL ER 75 MG CAP PO SCH (07:53)
[2021-11-12] MEDS: ACAMPROSATE CALCIUM 333 MG TABLET.DR PO SCH (07:53)
[2021-11-12] MEDS: THIAMINE 100 MG TAB PO SCH (07:53)
[2021-11-12] MEDS: chlordiazePOXIDE 25 MG CAP PO PRN (07:58)
[2021-11-12 11:40] VITALS: BP 121/77; PULSE 83; TEMP 98.4
--- NOTE | 2021-11-13 03:26 | DS ---
DISCHARGE SUMMARY CHIEF COMPLAINT: Acute and intractable nausea and vomiting and acute alcohol intoxication with impending DTs. HISTORY OF PRESENT ILLNESS AND PHYSICAL EXAMINATION: Details of this lady's history and physical can be found in the initial workup. LABORATORY STUDIES: While she was in the hospital, she had laboratory studies, details of which can be found in the laboratory section of her chart. COURSE IN THE HOSPITAL: After admission, she was placed on bedrest, and started on intravenous fluids and CIWA protocol. She did well. She had no significant tremors or signs or symptoms of DTs. She was doing well and wanted to be discharged on the because of difficulties at home regarding care for her children. She will go home on her usual activity, diet, and medications in addition to Campral 666 mg t.i.d. and will be seen in the office in several days. FINAL DIAGNOSES: 1. Intractable nausea and vomiting. 2. Acute alcohol intoxication. 3. Chronic alcoholism. OPERATIONS: None. CONSULTATIONS: None. CONDITION: She is improved. ILIANA / JEANETTE: [id number] /
== END 2021-11-12 14:35 | disposition home or self-care (01) | DRG 897 ==
LOC: EC 11:31 → 5NMEDONC 19:57
PROVIDERS: ADMIT Family Medicine; ATTEND Family Medicine
DX: F10.229 Alcohol dependence with intoxication, unspecified (principal); F10.231 Alcohol dependence with withdrawal delirium; K29.20 Alcoholic gastritis without bleeding; F32.A Depression, unspecified; E05.00 Thyrotoxicosis with diffuse goiter without thyrotoxic crisis or storm; N80.9 Endometriosis, unspecified; F17.290 Nicotine dependence, other tobacco product, uncomplicated; Z28.310 Unvaccinated for COVID-19; Z79.890 Hormone replacement therapy; Z79.899 Other long term (current) drug therapy; Z83.3 Family history of diabetes mellitus; Z81.1 Family history of alcohol abuse and dependence; Z81.8 Family history of other mental and behavioral disorders
CPT/HCPCS: 36415; 80048; 80053; 81003; 81025; 85025; 96361; 96372; 96374; 99285

== ENCOUNTER 2021-12-22 22:31 | Inpatient (IN) | payer OTHER ==
[2021-12-22] MEDS ORDERED: ONDANSETRON 4 MG/2 ML VIAL IVP STA (22:51)
[2021-12-22] MEDS ORDERED: THIAMINE 100 MG/ML 2 ML VIAL IM STA (22:52)
[2021-12-22] MEDS ORDERED: LORazepam 2 MG/ML INJ IV PRN ×3 (22:52)
[2021-12-22] MEDS ORDERED: SODIUM CHLORIDE 0.9% 2,000 ML IV STA (23:18)
[2021-12-22] MEDS ORDERED: SODIUM CHLORIDE 0.9% 1,000 ML with MVI, ADULT NO.4 WITH VIT K 10 ML, THIAMINE 100 MG, F... IV ONE ×4 (23:20)
[2021-12-23 00:22] LABS: Basophils % (A) 1 %; Eosinophils % (A) 1 %; HCT 36.1 % (34.0-46.0); Lymphocytes # (A) 0.8 k/uL (1.0-4.8); Lymphocytes % (A) 27 %; MCH 32.3 pg (25.0-35.0); MCHC 33.3 g/dL (31.0-37.0); MCV 97.2 fL (80.0-100.0); Mean Platelet Volume 8.2; Monocytes # (A) 0.3 k/uL (0-1.0); Monocytes % (A) 11 %; Neutrophils # (A) 1.7 k/uL (1.3-7.7); Neutrophils % (A) 57 %; Platelet Count 157 k/uL (150-450); RBC 3.72 m/uL (3.80-5.40); RDW 12.5 % (11.5-15.5)
[2021-12-23 00:29] LABS: ALT 33 U/L (4-34); AST 59 U/L (14-36); African American GFR (CKD) >90 (>60 ml/min/1.73 sqM); Albumin 3.9 g/dL (3.5-5.0); Alkaline Phosphatase 70 U/L (38-126); Anion Gap 14 mmol/L; Blood Urea Nitrogen 4 mg/dL (7-17); Calcium 7.6 mg/dL (8.4-10.2); Carbon Dioxide 22 mmol/L (22-30); Chloride 103 mmol/L (98-107); Glucose 96 mg/dL (74-99); Non-African American GFR(CKD) >90 (>60 ml/min/1.73 sqM); Sodium 139 mmol/L (137-145); Total Bilirubin 0.2 mg/dL (0.2-1.3); Total Protein 6.4 g/dL (6.3-8.2)
--- NOTE | 2021-12-23 00:31 | ED ---
General Adult HPI <Emiliano Chapa - Last Filed: 12/23/21 12:21> - General Source: EMS Mode of arrival: EMS <Lori Call - Last Filed: 12/23/21 16:03> - General Chief complaint: Nausea/Vomiting/Diarrhea Stated complaint: Withdrawal Time Seen by Provider: 12/22/21 22:35 - History of Present Illness Initial comments: Patient is a 41-year-old female with past medical history Graves' disease who presents to the emergency department with alcohol withdrawal. Patient recently hospitalized for alcohol withdrawal. States she has been drinking half a pint a day for a couple months however today drank 1 full pints of liquor. Last drink was at 5 PM today. Reports nausea without vomiting. Has not noticed any tremors throughout the day however reports having history of delirium tremens. Denies history of alcohol withdrawal seizure. Denies fever, chills, or other concerns. (Lori Call) - Related Data Home Medications Medication Instructions Recorded Confirmed Levothyroxine Sodium [Synthroid] 88 mcg PO DAILY 10/08/21 12/23/21 Pediatric Multivitamin No.30 2 tab PO DAILY 10/08/21 12/23/21 [Multivitamin Children's Gummies] Venlafaxine HCl [Effexor XR] 75 mg PO DAILY 10/08/21 12/23/21 busPIRone HCl [Buspar] 10 mg PO TID PRN 10/08/21 12/23/21 Allergies Allergy/AdvReac Type Severity Reaction Status Date / Time Sulfa (Sulfonamide Allergy Anaphylaxis Verified 12/23/21 09:09 Antibiotics) Review of Systems ROS Other: All systems not noted in ROS Statement are negative. <Emiliano Chapa - Last Filed: 12/23/21 12:21> ROS Other: All systems not noted in ROS Statement are negative. <Lori Call - Last Filed: 12/23/21 16:03> ROS Statement: Those systems with pertinent positive or pertinent negative responses have been documented in the HPI. Past Medical History Past Medical History: Thyroid Disorder Additional Past Medical History / Comment(s): Graves disease, endometriosis History of Any Multi-Drug Resistant Organisms: None Reported Past Surgical History: Section Additional Past Surgical History / Comment(s): laporoscopy for endometrosis Past Anesthesia/Blood Transfusion Reactions: No Reported Reaction Past Psychological History: Depression Smoking Status: Vaper Past Alcohol Use History: Heavy Past Drug Use History: None Reported - Past Family History Father Family Medical History: Diabetes Mellitus Additional Family Medical History / Comment(s): Alcoholic, mental health issues Mother Family Medical History: Diabetes Mellitus Son(s) Family Medical History: Diabetes Mellitus <Lori Call - Last Filed: 12/23/21 16:03> General Exam General appearance: alert, in no apparent distress Head exam: Present: atraumatic, normocephalic, normal inspection ENT exam: Present: other (tongue fasciculations ) Respiratory exam: Present: normal lung sounds bilaterally. Absent: respiratory distress, wheezes, rales, rhonchi, stridor Cardiovascular Exam: Present: regular rate, normal rhythm, normal heart sounds. Absent: systolic murmur, diastolic murmur, rubs, gallop, clicks GI/Abdominal exam: Present: soft, normal bowel sounds. Absent: distended, tenderness, guarding, rebound, rigid Extremities exam: Present: other (minimal hand tremors ) Neurological exam: Present: alert, oriented X3, CN II-XII intact Psychiatric exam: Present: normal affect, normal mood Skin exam: Present: warm, dry, intact, normal color. Absent: rash <Lori Call - Last Filed: 12/23/21 16:03> Course Vital Signs 12/22/21 12/23/21 12/23/21 22:41 08:00 12:11 Temperature 97.8 F 98.8 F Pulse Rate 88 88 81 Respiratory 15 18 18 Rate Blood Pressure 158/108 113/76 127/76 O2 Sat by Pulse 98 99 100 Oximetry 12/23/21 15:30 Temperature Pulse Rate 80 Respiratory 18 Rate Blood Pressure 131/88 O2 Sat by Pulse 99 Oximetry Medical Decision Making - Lab Data Result diagrams: 12/22/21 23:04 12/22/21 23:04 <Emiliano Chapa - Last Filed: 12/23/21 12:21> - Lab Data Result diagrams: 12/22/21 23:04 12/22/21 23:04 <Lori Call - Last Filed: 12/23/21 16:03> - Medical Decision Making I spoke with Dr. Abel and he agreed to admit the patient admitted the patient wrote admitting orders (Emiliano Chapa) This is a 41-year-old female presents with alcohol withdrawal. CIWA scale was obtained and patient has score of 7. IV fluids, Zofran, and Ativan given. Given patient's extensive alcohol history I do suggest admission. Patient agreeable. (Lori Call) - Lab Data Lab Results 12/22/21 12/22/21 Range/Units 23:04 23:04 WBC 3.0 L (3.8-10.6) k/uL RBC 3.72 L (3.80-5.40) m/uL Hgb 12.0 (11.4-16.0) gm/dL Hct 36.1 (34.0-46.0) % MCV 97.2 (80.0-100.0) fL MCH 32.3 (25.0-35.0) pg MCHC 33.3 (31.0-37.0) g/dL RDW 12.5 (11.5-15.5) % Plt Count 157 (150-450) k/uL MPV 8.2 Neutrophils % 57 % Lymphocytes % 27 % Monocytes % 11 % Eosinophils % 1 % Basophils % 1 % Neutrophils # 1.7 (1.3-7.7) k/uL Lymphocytes # 0.8 L (1.0-4.8) k/uL Monocytes # 0.3 (0-1.0) k/uL Eosinophils # 0.0 (0-0.7) k/uL Basophils # 0.0 (0-0.2) k/uL Sodium 139 (137-145) mmol/L Potassium 4.0 (3.5-5.1) mmol/L Chloride 103 (98-107) mmol/L Carbon Dioxide 22 (22-30) mmol/L Anion Gap 14 mmol/L BUN 4 L (7-17) mg/dL Creatinine 0.39 L (0.52-1.04) mg/dL Est GFR (CKD-EPI)AfAm >90 (>60 ml/min/1.73 sqM) Est GFR (CKD-EPI)NonAf >90 (>60 ml/min/1.73 sqM) Glucose 96 (74-99) mg/dL Calcium 7.6 L (8.4-10.2) mg/dL Total Bilirubin 0.2 (0.2-1.3) mg/dL AST 59 H (14-36) U/L ALT 33 (4-34) U/L Alkaline Phosphatase 70 (38-126) U/L Total Protein 6.4 (6.3-8.2) g/dL Albumin 3.9 (3.5-5.0) g/dL Serum Alcohol 241 H* mg/dL Disposition Time of Disposition: 12:21 <Emiliano Chapa - Last Filed: 12/23/21 12:21> <Lori Call - Last Filed: 12/23/21 16:03> Clinical Impression: Alcohol withdrawal syndrome, Alcohol intoxication Disposition: ADMITTED IP TO THIS HOSP
[2021-12-23 00:36] LABS: Alcohol 241 mg/dL
[2021-12-23] MEDS: THIAMINE 100 MG TAB PO SCH ×3 (07:07→17:31)
[2021-12-23] MEDS ORDERED: SODIUM CHLORIDE 0.9% 1,000 ML IV ONE (12:22)
[2021-12-23] MEDS ORDERED: THIAMINE 100 MG/ML 2 ML VIAL IM STA (12:28)
[2021-12-23] MEDS ORDERED: LORazepam 2 MG/ML INJ IV PRN ×3 (12:28)
[2021-12-23] MEDS ORDERED: LORazepam 1 MG/0.5 ML VIAL IV PRN ×3 (14:17→14:18)
[2021-12-23] MEDS ORDERED: THIAMINE 100 MG TAB PO SCH (17:30)
[2021-12-23 18:07] VITALS: RESP 16
[2021-12-24 05:12] VITALS: BP 123/78; PULSE 65; TEMP 98.3
[2021-12-24] MEDS: THIAMINE 100 MG TAB PO SCH (07:47)
--- NOTE | 2021-12-25 02:17 | HP ---
HISTORY AND PHYSICAL CHIEF COMPLAINT: Alcohol intoxication and chronic alcoholism. HISTORY OF PRESENT ILLNESS: This is another recent admission for this 41-year-old white female, chronic alcoholic. She has been in and out in the past for alcohol intoxication and DTs. She came to the emergency room because of agitation and impending DTs. She does not feel that this was DTs. She has been undergoing quite a bit of stress, in that she was recently arrested and, according to her, got into an altercation with the police and has been informed that she is being charged with resisting arrest. REVIEW OF SYSTEMS: She denies any diplopia, blackouts, shakiness, shortness of breath, chest pain, abdominal pain, nausea, vomiting, hematemesis, melena, hematochezia, etc. Past medical history, family history, personal and social histories are all otherwise unremarkable and unchanged from her recent admitting and discharge summaries. PHYSICAL EXAMINATION: VITAL SIGNS: Blood pressure 138/90 with a pulse of 88, respirations of 35, and she is afebrile. GENERAL: She appeared to be slender and in no acute distress. SKIN: Color is normal. Skin is warm and dry. LYMPH NODES: Not enlarged. HEAD, EARS, EYES, NOSE, MOUTH AND THROAT: Normal. NECK: Neck veins are not distended. Thyroid is not enlarged. CHEST: Clear. CARDIAC: Normal. ABDOMEN: Soft, flat, nontender without any visceromegaly or masses. Bowel sounds present. EXTREMITIES: Normal and neurologically she is intact. She is not tremulous. IMPRESSION: 1. Acute alcohol intoxication. 2. Possible impending DTs. 3. Chronic alcoholism. PLAN: 1. Bedrest. 2. IV fluids. 3. [facility] protocol. MMODL / IJN: [id number] /
--- NOTE | 2021-12-25 09:07 | DS ---
DISCHARGE SUMMARY CHIEF COMPLAINT: Acute alcohol intoxication. HISTORY OF PRESENT ILLNESS AND PHYSICAL EXAMINATION: Details of this lady's history and physical can be found in the initial workup. COURSE IN THE HOSPITAL: After admission, she was placed on bedrest, started on intravenous fluids and started on CIWA protocol. She had no DTs. She had no difficulty and was felt that she could be discharged on the . She will go home on her usual activity, diet and medications. She does not feel that Sonnyral did her any good and she does not want to take it. She will be followed up in the office in several days. FINAL DIAGNOSES: 1. Acute alcohol intoxication. 2. Chronic alcoholism. 3. Impending DTs. OPERATIONS: None. CONSULTATION: None, she is improved. ILIANA / JEANETTE: [id number] /
== END 2021-12-24 11:20 | disposition home or self-care (01) | DRG 897 ==
LOC: EC 22:31 → 5NMEDONC 12-23 12:22
PROVIDERS: ADMIT Family Medicine; ATTEND Family Medicine
PROC: HZ2ZZZZ Detoxification Services for Substance Abuse Treatment (ICD-10-PCS; principal; 2021-12-24)
DX: F10.229 Alcohol dependence with intoxication, unspecified (principal); Y90.8 Blood alcohol level of 240 mg/100 ml or more; Z65.3 Problems related to other legal circumstances; Z79.890 Hormone replacement therapy; Z86.39 Personal history of other endocrine, nutritional and metabolic disease; Z79.899 Other long term (current) drug therapy; Z88.2 Allergy status to sulfonamides; Z81.8 Family history of other mental and behavioral disorders; Z81.1 Family history of alcohol abuse and dependence
CPT/HCPCS: 36415; 80053; 80320; 83735; 85025; 96365; 96366; 96372; 96375; 96376; 99285

== ENCOUNTER 2022-02-01 12:07 | Emergency (ER) | payer OTHER ==
[2022-02-01 12:20] VITALS: TEMP 98.2
[2022-02-01] MEDS ORDERED: LORazepam 2 MG/ML INJ IV STA (12:50)
[2022-02-01] MEDS ORDERED: ONDANSETRON 4 MG/2 ML VIAL IVP STA (12:50)
[2022-02-01] MEDS ORDERED: SODIUM CHLORIDE 0.9% 1,000 ML IV STA (12:50)
[2022-02-01 13:15] LABS: Basophils % (A) 0 %; Eosinophils # (A) 0.1 k/uL (0-0.7); Eosinophils % (A) 1 %; HGB 13.7 gm/dL (11.4-16.0); Lymphocytes # (A) 1.3 k/uL (1.0-4.8); Lymphocytes % (A) 14 %; MCH 31.4 pg (25.0-35.0); MCHC 34.3 g/dL (31.0-37.0); Mean Platelet Volume 7.8; Monocytes # (A) 0.3 k/uL (0-1.0); Monocytes % (A) 3 %; Neutrophils # (A) 7.9 k/uL (1.3-7.7); Neutrophils % (A) 82 %; Platelet Count 255 k/uL (150-450); RBC 4.37 m/uL (3.80-5.40); RDW 11.8 % (11.5-15.5); WBC 9.7 k/uL (3.8-10.6)
[2022-02-01 13:29] LABS: ALT 32 U/L (4-34); AST 29 U/L (14-36); African American GFR (CKD) >90 (>60 ml/min/1.73 sqM); Albumin 4.8 g/dL (3.5-5.0); Alcohol <10 mg/dL; Alkaline Phosphatase 84 U/L (38-126); Anion Gap 11 mmol/L; Blood Urea Nitrogen 13 mg/dL (7-17); Calcium 9.4 mg/dL (8.4-10.2); Carbon Dioxide 26 mmol/L (22-30); Chloride 98 mmol/L (98-107); Glucose 128 mg/dL (74-99); Non-African American GFR(CKD) >90 (>60 ml/min/1.73 sqM); Potassium 4.2 mmol/L (3.5-5.1); Sodium 135 mmol/L (137-145); Total Bilirubin 0.8 mg/dL (0.2-1.3); Total Protein 7.5 g/dL (6.3-8.2)
[2022-02-01 13:38] LABS: MCV 91.5 fL (80.0-100.0)
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
[2022-02-01 13:54] LABS: Appearance,Urine Clear (Clear); Bilirubin,Urine Negative (Negative); Blood,Urine Negative (Negative); Color,Urine Yellow; Glucose,Urine (UA) Negative (Negative); Ketones,Urine 1+ (Negative); Leukocyte Esterase,Urine Negative (Negative); Mucus,Urine Moderate /hpf; Nitrite,Urine Negative (Negative); PH, Urine 8.5 (5.0-8.0); Protein,Urine 2+ (Negative); Specific Gravity,Urine 1.023 (1.001-1.035); Squamous Epithelial Cell,Urine 1 /hpf (0-4); Urobilinogen,Urine <2.0 mg/dL (<2.0); WBC,Urine 1 /hpf (0-5)
[2022-02-01 14:07] LABS: Phencyclidine Screen,Urine Not Detected (NotDetected); Urn Cannabinoid Scrn Not Detected (NotDetected)
[2022-02-01 14:08] LABS: Amphetamine Screen,Urine Not Detected (NotDetected); Barbiturate Screen,Urine Not Detected (NotDetected); Benzodiazepines Screen,Urine Not Detected (NotDetected); Cocaine Screen,Urine Not Detected (NotDetected); Methadone Screen, Urine Not Detected (NotDetected); Opiate Screen,Urine Not Detected (NotDetected); Oxycodone Screen, Urine Not Detected (NotDetected); Tricyclic Antidepressant,Urine Not Detected (NotDetected)
[2022-02-01 15:30] VITALS: BP 128/78; PULSE 88; RESP 16
== END 2022-02-01 15:30 | disposition home or self-care (01) ==
LOC: EC 12:07
DX: F41.0 Panic disorder [episodic paroxysmal anxiety] (principal); E07.9 Disorder of thyroid, unspecified; F32.A Depression, unspecified; F17.290 Nicotine dependence, other tobacco product, uncomplicated; Z88.2 Allergy status to sulfonamides; Z79.890 Hormone replacement therapy; Z79.899 Other long term (current) drug therapy
CPT/HCPCS: 36415; 80053; 84484; 85025; 81001; 81025; 80306; 99284; 96374; 96375; 96361; G0480; J2060; J2405; 80320

== ENCOUNTER 2022-11-29 17:25 | Emergency (ER) | payer OTHER ==
[2022-11-29] MEDS ORDERED: LORazepam 2 MG/ML INJ IV STA ×2 (17:50→21:12)
--- NOTE | 2022-11-29 17:50 | ED ---
General Adult HPI <Willie Willoughby - Last Filed: 11/29/22 17:49> - History of Present Illness Onset/Timin -: days(s) Severity scale (1-10): 0 Consistency: constant Improves with: none Worsens with: none Associated Symptoms: headaches, other (Anxiety and tremor) Treatments Prior to Arrival: other (Librium) <Pavel Bell - Last Filed: 12/09/22 12:36> - General Stated complaint: weakness nausea - History of Present Illness Initial comments: 42 year Old female presenting to the ED with a chief complaint of alcohol withdrawal. Patient previously discharged from our facility due to this. Was a pint per day drinker. Last drink Monday. Since discharge, reports worsening symptoms. Reports increased tremulousness, nausea and vomiting, headache, and auditory hallucinations. (Willie Willoughby) This patient is a 42-year-old woman who arrives with complaint that she is feeling very tremulous, anxious, she has had nausea and vomiting. Patient also having some moderate generalized headache. She states that she believes she is going through alcohol withdrawal. The patient reports that she usually was drinking a pint of alcohol per day occasionally 2 pints. She had her last drink on Monday. Patient reports she also was having some hallucinations yesterday and is not aware if she took her Librium as directed. (Pavel Bell) - Related Data Home Medications Medication Instructions Recorded Confirmed Levothyroxine Sodium [Synthroid] 88 mcg PO DAILY 10/08/21 12/02/22 chlordiazePOXIDE HCl [Librium] 10 mg PO TID PRN 11/27/22 12/02/22 Previous Rx's Medication Instructions Recorded DULoxetine HCL [Cymbalta] 30 mg PO DAILY cap 12/06/22 Doxycycline [Vibramycin] 100 mg PO BID 7 Days #14 capsule 12/06/22 Ibuprofen [Motrin] 600 mg PO TID tab 12/06/22 Thiamine [Vitamin B-1] 100 mg PO DAILY tab 12/06/22 diazePAM [Valium] 5 mg PO TID tab 12/06/22 traZODone HCL [Desyrel] 50 mg PO HS tab 12/06/22 Allergies Allergy/AdvReac Type Severity Reaction Status Date / Time Sulfa (Sulfonamide Allergy Anaphylaxis Verified 12/02/22 07:48 Antibiotics) Review of Systems ROS Other: All systems not noted in ROS Statement are negative. <RonanalisonWillie wesley - Last Filed: 11/29/22 17:49> ROS Other: All systems not noted in ROS Statement are negative. Constitutional: Denies: fever, chills, weakness Eyes: Denies: vision change Respiratory: Denies: cough, dyspnea Cardiovascular: Denies: chest pain, palpitations Gastrointestinal: Reports: nausea, vomiting. Denies: abdominal pain, diarrhea, hematemesis, melena, hematochezia Genitourinary: Denies: dysuria, hematuria Musculoskeletal: Denies: back pain Skin: Denies: rash Neurological: Denies: headache, weakness Psychiatric: Reports: anxiety, auditory hallucinations. Denies: homicidal thoughts, suicidal thoughts <ArabellaPavel - Last Filed: 12/09/22 12:36> ROS Statement: Those systems with pertinent positive or pertinent negative responses have been documented in the HPI. Past Medical History Past Medical History: Thyroid Disorder Additional Past Medical History / Comment(s): Graves disease, endometriosis History of Any Multi-Drug Resistant Organisms: None Reported Past Surgical History: Section Additional Past Surgical History / Comment(s): laporoscopy for endometrosis Past Anesthesia/Blood Transfusion Reactions: No Reported Reaction Past Psychological History: Anxiety, Depression Smoking Status: Vaper Past Alcohol Use History: Heavy Past Drug Use History: None Reported - Past Family History Father Family Medical History: Diabetes Mellitus Additional Family Medical History / Comment(s): Alcoholic, mental health issues Mother Family Medical History: Diabetes Mellitus Son(s) Family Medical History: Diabetes Mellitus <Willie Willoughby - Last Filed: 11/29/22 17:49> General Exam Limitations: no limitations General appearance: alert Neck exam: Present: normal inspection Extremities exam: Present: normal inspection, other (tremulous) Back exam: Present: normal inspection Skin exam: Present: warm <Willie Willoughby - Last Filed: 11/29/22 17:49> General appearance: alert, anxious Head exam: Present: atraumatic, normocephalic Eye exam: Present: normal appearance, PERRL, EOMI. Absent: scleral icterus, conjunctival injection ENT exam: Present: normal oropharynx Neck exam: Present: normal inspection, full ROM Respiratory exam: Present: normal lung sounds bilaterally. Absent: respiratory distress, wheezes, rales, rhonchi, stridor Cardiovascular Exam: Present: regular rate, normal rhythm, normal heart sounds. Absent: systolic murmur, diastolic murmur, rubs, gallop GI/Abdominal exam: Present: soft. Absent: distended, tenderness, guarding, rebound, rigid, mass Extremities exam: Present: normal inspection, normal capillary refill. Absent: pedal edema, calf tenderness Back exam: Present: normal inspection. Absent: CVA tenderness (R), CVA tenderness (L) Neurological exam: Present: alert Psychiatric exam: Present: anxious. Absent: depressed, flat affect, homicidal ideation, suicidal ideation Skin exam: Present: warm, dry, intact, normal color. Absent: rash <Pavel Bell - Last Filed: 12/09/22 12:36> Course Vital Signs 11/29/22 11/29/22 11/29/22 17:48 21:27 23:00 Temperature 98.9 F Pulse Rate 65 74 69 Respiratory 18 20 18 Rate Blood Pressure 124/76 144/81 111/68 O2 Sat by Pulse 99 98 97 Oximetry 11/30/22 00:00 Temperature 98.2 F Pulse Rate 61 Respiratory 16 Rate Blood Pressure 114/70 O2 Sat by Pulse 99 Oximetry Medical Decision Making <Willie Willoughby - Last Filed: 11/29/22 17:49> - Lab Data Result diagrams: 11/29/22 19:56 11/29/22 19:56 <Pavel Bell - Last Filed: 12/09/22 12:36> - Medical Decision Making Quicknote performed. Signed Willie Willoughby PA-C (Willie Willoughby) Was pt. sent in by a medical professional or institution ([facility], GED INSTRUCTOR, urgent care, hospital, or retirement...) When possible be specific @ -[No] Did you speak to anyone other than the patient for history (EMS, parent, family, police, friend...)? What history was obtained from this source @ -[No] Did you review nursing and triage notes (agree or disagree)? Why? @ -[I reviewed and agree with nursing and triage notes] Were old charts reviewed (outside hosp., previous admission, EMS record, old EKG, old radiological studies, urgent care reports/EKG's, retirement records)? Report findings @ -[No old charts were reviewed] Differential Diagnosis (chest pain, altered mental status, abdominal pain women, abdominal pain men, vaginal bleeding, weakness, fever, dyspnea, syncope, headache, dizziness, GI bleed, back pain, seizure, CVA, palpatations, mental health, musculoskeletal)? @ -[Differential Mental Health Depression, anxiety, bipolar, psychosis, schizophrenia, borderline personality, situational depression, adjustment disorder, behavioral disorder, brain tumor, malingering, substance abuse, encephalopathy, medication reaction, dementia, hypothyroidism, degenerative neurologic disorder, lupus.... This is not meant to be all-inclusive list EKG interpreted by me (3pts min.). @ -[As above] X-rays interpreted by me (1pt min.). @ -[None done] CT interpreted by me (1pt min.). @ -[None done] U/S interpreted by me (1pt. min.). @ -[None done] What testing was considered but not performed or refused? (CT, X-rays, U/S, labs)? Why? @ -[None] What meds were considered but not given or refused? Why? @ -[None] Did you discuss the management of the patient with other professionals (professionals i.e. , PA, GED INSTRUCTOR, lab, RT, psych nurse, psychosocial rehabilitation counselor, highway patrol commander, teacher, peace officer, outpatient case manager)? Give summary @ -[No] Was smoking cessation discussed for >3mins.? @ -[No] Was critical care preformed (if so, how long)? @ -[No] Were there social determinants of health that impacted care today? How? (Homelessness, low income, unemployed, alcoholism, drug addiction, transportation, low edu. Level, literacy, decrease access to med. care, [place] [facility], rehab)? @ -[No] Was there de-escalation of care discussed even if they declined (Discuss DNR or withdrawal of care, Hospice)? DNR status @ -[No] What co-morbidities impacted this encounter? (DM, HTN, Smoking, COPD, CAD, Cancer, CVA, ARF, Chemo, Hep., AIDS, mental health diagnosis, sleep apnea, morbid obesity)? @ -[None] Was patient admitted / discharged? Hospital course, mention meds given and route, prescriptions, significant lab abnormalities, going to OR and other pertinent info. @ -[The patient is seen for symptoms she is concerned are related to alcohol withdrawal. The history and physical are consistent with some mild withdrawal symptoms. She did have improvement following medications here and does appear stable to continue as outpatient. We discussed appropriate further care and follow-up as well as return parameters. Undiagnosed new problem with uncertain prognosis? @ -[No] Drug Therapy requiring intensive monitoring for toxicity (Heparin, Nitro, Insulin, Cardizem)? @ -[No] Were any procedures done? @ -[No] Diagnosis/symptom? @ -[Acute alcohol withdrawal Acute, or Chronic, or Acute on Chronic? @ -[Acute Uncomplicated (without systemic symptoms) or Complicated (systemic symptoms)? @ -[Uncomplicated Side effects of treatment? @ -[No] Exacerbation, Progression, or Severe Exacerbation? @ -[No] Poses a threat to life or bodily function? How? (Chest pain, [place], [place], pneumonia, PE, COPD, DKA, ARF, appy, cholecystitis, CVA, Diverticulitis, Homicidal, Suicidal, threat to staff... and all critical care pts) @ -[No] (Pavel Bell) - Lab Data Lab Results 11/29/22 11/29/22 11/29/22 Range/Units 19:56 19:56 19:56 WBC 8.1 (3.8-10.6) k/uL RBC 4.34 (3.80-5.40) m/uL Hgb 13.7 (11.4-16.0) gm/dL Hct 39.2 (34.0-46.0) % MCV 90.4 (80.0-100.0) fL MCH 31.6 (25.0-35.0) pg MCHC 34.9 (31.0-37.0) g/dL RDW 13.2 (11.5-15.5) % Plt Count 211 (150-450) k/uL MPV 9.1 Neutrophils % 71 % Lymphocytes % 22 % Monocytes % 5 % Eosinophils % 1 % Basophils % 0 % Neutrophils # 5.7 (1.3-7.7) k/uL Lymphocytes # 1.8 (1.0-4.8) k/uL Monocytes # 0.4 (0-1.0) k/uL Eosinophils # 0.1 (0-0.7) k/uL Basophils # 0.0 (0-0.2) k/uL Sodium 135 L (137-145) mmol/L Potassium 4.0 (3.5-5.1) mmol/L Chloride 100 (98-107) mmol/L Carbon Dioxide 26 (22-30) mmol/L Anion Gap 9 mmol/L BUN 7 (7-17) mg/dL Creatinine 0.52 (0.52-1.04) mg/dL Est GFR (CKD-EPI)AfAm >90 (>60 ml/min/1.73 sqM) Est GFR (CKD-EPI)NonAf >90 (>60 ml/min/1.73 sqM) Glucose 92 (74-99) mg/dL Calcium 8.6 (8.4-10.2) mg/dL Total Bilirubin 0.5 (0.2-1.3) mg/dL AST 32 (14-36) U/L ALT 20 (4-34) U/L Alkaline Phosphatase 62 (38-126) U/L Total Protein 7.3 (6.3-8.2) g/dL Albumin 4.3 (3.5-5.0) g/dL Urine Color Light Yellow Urine Appearance Clear (Clear) Urine pH 6.5 (5.0-8.0) Ur Specific [place] 1.010 (1.001-1.035) Urine Protein Negative (Negative) Urine Glucose (UA) Negative (Negative) Urine Ketones 1+ H (Negative) Urine Blood Negative (Negative) Urine Nitrite Negative (Negative) Urine Bilirubin Negative (Negative) Urine Urobilinogen <2.0 (<2.0) mg/dL Ur Leukocyte Esterase Negative (Negative) Serum Alcohol <10 mg/dL Disposition <Willie Willoughby - Last Filed: 11/29/22 17:49> Is patient prescribed a controlled substance at d/c from ED?: No <Pavel Bell - Last Filed: 12/09/22 12:36> Clinical Impression: Alcohol withdrawal syndrome Disposition: HOME SELF-CARE Condition: Good Instructions (If sedation given, give patient instructions): Alcohol Withdrawal (ED) Referrals: Rick Arellano MD [Primary Care Provider] - 1-2 days
[2022-11-29] MEDS ORDERED: SODIUM CHLORIDE 0.9% 1,000 ML IV STA (17:51)
[2022-11-29 21:12] LABS: Appearance,Urine Clear (Clear); Bilirubin,Urine Negative (Negative); Blood,Urine Negative (Negative); Color,Urine Light Yellow; Glucose,Urine (UA) Negative (Negative); Ketones,Urine 1+ (Negative); Leukocyte Esterase,Urine Negative (Negative); Nitrite,Urine Negative (Negative); PH, Urine 6.5 (5.0-8.0); Protein,Urine Negative (Negative); Urobilinogen,Urine <2.0 mg/dL (<2.0)
[2022-11-29] MEDS ORDERED: SODIUM CHLORIDE 0.9% 1,000 ML IV ONE (21:13)
[2022-11-29 21:15] LABS: Basophils % (A) 0 %; Eosinophils # (A) 0.1 k/uL (0-0.7); Eosinophils % (A) 1 %; HCT 39.2 % (34.0-46.0); HGB 13.7 gm/dL (11.4-16.0); Lymphocytes # (A) 1.8 k/uL (1.0-4.8); Lymphocytes % (A) 22 %; MCH 31.6 pg (25.0-35.0); MCHC 34.9 g/dL (31.0-37.0); MCV 90.4 fL (80.0-100.0); Mean Platelet Volume 9.1; Monocytes # (A) 0.4 k/uL (0-1.0); Monocytes % (A) 5 %; Neutrophils # (A) 5.7 k/uL (1.3-7.7); Neutrophils % (A) 71 %; Platelet Count 211 k/uL (150-450); RBC 4.34 m/uL (3.80-5.40); RDW 13.2 % (11.5-15.5); WBC 8.1 k/uL (3.8-10.6)
[2022-11-29 21:19] LABS: ALT 20 U/L (4-34); AST 32 U/L (14-36); African American GFR (CKD) >90 (>60 ml/min/1.73 sqM); Albumin 4.3 g/dL (3.5-5.0); Alcohol <10 mg/dL; Alkaline Phosphatase 62 U/L (38-126); Anion Gap 9 mmol/L; Blood Urea Nitrogen 7 mg/dL (7-17); Calcium 8.6 mg/dL (8.4-10.2); Carbon Dioxide 26 mmol/L (22-30); Chloride 100 mmol/L (98-107); Glucose 92 mg/dL (74-99); Non-African American GFR(CKD) >90 (>60 ml/min/1.73 sqM); Sodium 135 mmol/L (137-145); Total Bilirubin 0.5 mg/dL (0.2-1.3); Total Protein 7.3 g/dL (6.3-8.2)
[2022-11-29] MEDS ORDERED: DEXTROSE 5%-0.45% NACL 1,000 ML IV ONE (21:38)
[2022-11-30 00:19] VITALS: BP 114/70; PULSE 61; RESP 16; TEMP 98.2
== END 2022-11-30 00:28 | disposition home or self-care (01) ==
LOC: EC 17:25
DX: F10.939 Alcohol use, unspecified with withdrawal, unspecified (principal); E07.9 Disorder of thyroid, unspecified; F41.9 Anxiety disorder, unspecified; F32.A Depression, unspecified; F17.290 Nicotine dependence, other tobacco product, uncomplicated; Y90.0 Blood alcohol level of less than 20 mg/100 ml; Z79.890 Hormone replacement therapy; Z79.899 Other long term (current) drug therapy; Z88.2 Allergy status to sulfonamides
CPT/HCPCS: 36415; 80053; 85025; 81003; 99285; G0480; J2060; 80320; 96361; 96374

== ENCOUNTER 2022-12-01 23:57 | Inpatient (IN) | payer OTHER ==
[2022-12-02] MEDS ORDERED: SODIUM CHLORIDE 0.9% 1,000 ML IV STA (00:40)
--- NOTE | 2022-12-02 01:05 | ED ---
General Adult HPI - General Chief complaint: Psychiatric Symptoms Stated complaint: Mental Health Time Seen by Provider: 12/02/22 00:05 Source: EMS Mode of arrival: EMS Limitations: no limitations - History of Present Illness Initial comments: Dictation was produced using [employer] dictation software. please excuse any grammatical, word or spelling errors. Chief Complaint: 42-year-old female presents with alcohol intoxication suicidal ideation History of Present Illness: 42-year-old female presents with suicidal ideation. Patient had a relapse of large consumption of alcohol. Patient had approximately 34 pints of hard liquor today. She was in an argument and started to make suicidal comments. History of present illness obtained from friend and mother at the bedside. The ROS documented in this emergency department record has been reviewed and confirmed by me. Those systems with pertinent positive or negative responses have been documented in the HPI. All other systems are other negative and/or noncontributory. - Related Data Home Medications Medication Instructions Recorded Confirmed Levothyroxine Sodium [Synthroid] 88 mcg PO DAILY 10/08/21 11/29/22 FLUoxetine HCL [PROzac] 20 mg PO DAILY 11/27/22 11/29/22 chlordiazePOXIDE HCl [Librium] 10 mg PO TID PRN 11/27/22 11/29/22 Allergies Allergy/AdvReac Type Severity Reaction Status Date / Time Sulfa (Sulfonamide Allergy Anaphylaxis Verified 11/29/22 17:51 Antibiotics) Review of Systems ROS Statement: Those systems with pertinent positive or pertinent negative responses have been documented in the HPI. ROS Other: All systems not noted in ROS Statement are negative. Past Medical History Past Medical History: Thyroid Disorder Additional Past Medical History / Comment(s): Graves disease, endometriosis History of Any Multi-Drug Resistant Organisms: None Reported Past Surgical History: Section Additional Past Surgical History / Comment(s): laporoscopy for endometrosis Past Anesthesia/Blood Transfusion Reactions: No Reported Reaction Past Psychological History: Anxiety, Depression Smoking Status: Vaper Past Alcohol Use History: Heavy Past Drug Use History: None Reported - Past Family History Father Family Medical History: Diabetes Mellitus Additional Family Medical History / Comment(s): Alcoholic, mental health issues Mother Family Medical History: Diabetes Mellitus Son(s) Family Medical History: Diabetes Mellitus General Exam - General Exam Comments Initial Comments: PHYSICAL EXAM: General Impression: Inebriated HEENT: Normocephalic atraumatic, extra-ocular movements intact, pupils equal and reactive to light bilaterally, mucous membranes moist. Cardiovascular: Heart regular rate and rhythm Chest: no retractions, no tachypnea Abdomen: abdomen soft, non-tender, non-distended, no organomegaly Musculoskeletal: Pulses present and equal in all extremities, no peripheral edema Motor: no focal deficits noted Neurological: CN II-XII grossly intact, no focal motor or sensory deficits n oted, nystagmus Skin: Intact with no visualized rashes Limitations: no limitations Course Vital Signs 12/02/22 00:00 Temperature 98.2 F Pulse Rate 78 Respiratory 20 Rate Blood Pressure 113/78 O2 Sat by Pulse 98 Oximetry Medical Decision Making - Medical Decision Making Was pt. sent in by a medical professional or institution (, PA, CROWD CONTROLLER, urgent care, hospital, or [facility]...) When possible be specific @ -No Did you speak to anyone other than the patient for history (EMS, parent, family, police, friend...)? What history was obtained from this source @ -No Did you review nursing and triage notes (agree or disagree)? Why? @ -I reviewed and agree with nursing and triage notes Were old charts reviewed (outside hosp., previous admission, EMS record, old EKG, old radiological studies, urgent care reports/EKG's, [facility] records)? Report findings @ -No old charts were reviewed Differential Diagnosis (chest pain, altered mental status, abdominal pain women, abdominal pain men, vaginal bleeding, musculoskeletal, weakness, fever, dyspnea, syncope, headache, dizziness, GI bleed, back pain, seizure, CVA, palpatations, mental health)? @ -Differential Mental Health: Depression, anxiety, bipolar, psychosis, schizophrenia, borderline personality, situational depression, adjustment disorder, behavioral disorder, brain tumor, malingering, substance abuse, encephalopathy, medication reaction, dementia, hypothyroidism, degenerative neurologic disorder, lupus.... This is not meant to be all-inclusive list EKG interpreted by me (3pts min.). @ -None done X-rays interpreted by me (1pt min.). @ -None done CT interpreted by me (1pt min.). @ -None done U/S interpreted by me (1pt. min.). @ -None done What testing was considered but not performed or refused? (CT, X-rays, U/S, amanda keen)? Why? @ -None What meds were considered but not given or refused? Why? @ -None Did you discuss the management of the patient with other professionals (professionals i.e. , PA, CROWD CONTROLLER, lab, RT, psych nurse, social insurance administrator, bulk filler, teacher, credit control officer, block and case maker)? Give summary @ -Case discussed with hospitalist for admission Was smoking cessation discussed for >3mins.? @ -No Was critical care preformed (if so, how long)? @ -No Were there social determinants of health that impacted care today? How? (Homelessness, low income, unemployed, alcoholism, drug addiction, transportation, low edu. Level, literacy, decrease access to med. care, long term, rehab)? @ -No Was there de-escalation of care discussed even if they declined (Discuss DNR or withdrawal of care, Hospice)? DNR status @ -No What co-morbidities impacted this encounter? (DM, HTN, Smoking, COPD, CAD, Cancer, CVA, ARF, Chemo, Hep., AIDS, mental health diagnosis, sleep apnea, morbid obesity)? @ -None Was patient admitted / discharged? Hospital course, mention meds given and route, prescriptions, significant lab abnormalities, going to OR and other pertinent info. @ -42 Year-old female presents emergency department for alcohol intoxication suicidal ideation. Patient clinically intoxicated. Laboratory evaluation obtained. CBC and metabolic panel is unremarkable. Serum alcohol is 294. She'll be admitted for alcohol intoxication consultation to psychiatry for suicidal ideation. Undiagnosed new problem with uncertain prognosis? @ -No Drug Therapy requiring intensive monitoring for toxicity (Heparin, Nitro, Insulin, Cardizem)? @ -No Were any procedures done? @ -No Diagnosis/symptom? Acute, or Chronic, or Acute on Chronic? Uncomplicated (without systemic symptoms) or Complicated (systemic symptoms)? @ -1. Alcohol intoxication, 2. Suicidal ideation Side effects of treatment? @ -No Exacerbation, Progression, or Severe Exacerbation? @ -No Poses a threat to life or bodily function? How? (Chest pain, [place], [place], pneumonia, PE, COPD, DKA, ARF, appy, cholecystitis, CVA, Diverticulitis, Homicidal, Suicidal, threat to staff... and all critical care pts) @ -yes - Lab Data Result diagrams: 12/02/22 01:47 12/02/22 01:47 Lab Results 12/02/22 12/02/22 12/02/22 Range/Units 01:47 01:47 01:47 WBC 5.7 (3.8-10.6) k/uL RBC 4.58 (3.80-5.40) m/uL Hgb 14.1 (11.4-16.0) gm/dL Hct 41.4 (34.0-46.0) % MCV 90.4 (80.0-100.0) fL MCH 30.9 (25.0-35.0) pg MCHC 34.2 (31.0-37.0) g/dL RDW 13.1 (11.5-15.5) % Plt Count 124 L (150-450) k/uL MPV 8.2 Neutrophils % 56 % Lymphocytes % 37 % Monocytes % 4 % Eosinophils % 2 % Basophils % 0 % Neutrophils # 3.2 (1.3-7.7) k/uL Lymphocytes # 2.1 (1.0-4.8) k/uL Monocytes # 0.2 (0-1.0) k/uL Eosinophils # 0.1 (0-0.7) k/uL Basophils # 0.0 (0-0.2) k/uL Sodium 144 (137-145) mmol/L Potassium 4.3 (3.5-5.1) mmol/L Chloride 107 (98-107) mmol/L Carbon Dioxide 27 (22-30) mmol/L Anion Gap 10 mmol/L BUN 3 L (7-17) mg/dL Creatinine 0.45 L (0.52-1.04) mg/dL Est GFR (CKD-EPI)AfAm >90 (>60 ml/min/1.73 sqM) Est GFR (CKD-EPI)NonAf >90 (>60 ml/min/1.73 sqM) Glucose 108 H (74-99) mg/dL Plasma Lactic Acid Victoriano 1.3 (0.7-2.0) mmol/L Calcium 8.7 (8.4-10.2) mg/dL Magnesium 2.1 (1.6-2.3) mg/dL Total Bilirubin 0.4 (0.2-1.3) mg/dL AST 31 (14-36) U/L ALT 18 (4-34) U/L Alkaline Phosphatase 53 (38-126) U/L Total Protein 7.9 (6.3-8.2) g/dL Albumin 4.6 (3.5-5.0) g/dL Salicylates <1.0 mg/dL Acetaminophen <10.0 ug/mL Serum Alcohol 294 H* mg/dL Disposition Clinical Impression: Suicidal ideation, Alcohol intoxication Disposition: ADMITTED IP TO THIS HOSP Condition: Fair Referrals: Rick Arellano MD [Primary Care Provider] - 1-2 days Decision Time: 02:19
[2022-12-02 01:55] LABS: Basophils % (A) 0 %; Eosinophils # (A) 0.1 k/uL (0-0.7); Eosinophils % (A) 2 %; HCT 41.4 % (34.0-46.0); HGB 14.1 gm/dL (11.4-16.0); Lymphocytes # (A) 2.1 k/uL (1.0-4.8); Lymphocytes % (A) 37 %; MCH 30.9 pg (25.0-35.0); MCHC 34.2 g/dL (31.0-37.0); MCV 90.4 fL (80.0-100.0); Mean Platelet Volume 8.2; Monocytes # (A) 0.2 k/uL (0-1.0); Monocytes % (A) 4 %; Neutrophils # (A) 3.2 k/uL (1.3-7.7); Neutrophils % (A) 56 %; Platelet Count 124 k/uL (150-450); RBC 4.58 m/uL (3.80-5.40); RDW 13.1 % (11.5-15.5); WBC 5.7 k/uL (3.8-10.6)
[2022-12-02] MEDS ORDERED: LORazepam 2 MG/ML INJ IV STA (01:55)
[2022-12-02 02:06] LABS: ALT 18 U/L (4-34); AST 31 U/L (14-36); Acetaminophen <10.0 ug/mL; African American GFR (CKD) >90 (>60 ml/min/1.73 sqM); Albumin 4.6 g/dL (3.5-5.0); Alkaline Phosphatase 53 U/L (38-126); Anion Gap 10 mmol/L; Blood Urea Nitrogen 3 mg/dL (7-17); Calcium 8.7 mg/dL (8.4-10.2); Carbon Dioxide 27 mmol/L (22-30); Chloride 107 mmol/L (98-107); Glucose 108 mg/dL (74-99); Magnesium 2.1 mg/dL (1.6-2.3); Non-African American GFR(CKD) >90 (>60 ml/min/1.73 sqM); Potassium 4.3 mmol/L (3.5-5.1); Salicylate <1.0 mg/dL; Sodium 144 mmol/L (137-145); Total Bilirubin 0.4 mg/dL (0.2-1.3); Total Protein 7.9 g/dL (6.3-8.2)
[2022-12-02 02:10] LABS: Alcohol 294 mg/dL
[2022-12-02] MEDS ORDERED: NALOXONE 0.4 MG/ML 1 ML VIAL IV PRN (02:13)
[2022-12-02] MEDS ORDERED: LORazepam 2 MG/ML INJ IV PRN ×2 (02:17)
[2022-12-02] MEDS ORDERED: THIAMINE 100 MG/ML 2 ML VIAL IM STA (02:17)
[2022-12-02] MEDS ORDERED: ONDANSETRON 4 MG/2 ML VIAL IVP STA (02:38)
[2022-12-02] MEDS: SODIUM CHLORIDE 0.9% 1,000 ML IV SCH ×3 (04:03→18:03)
--- NOTE | 2022-12-02 13:20 | P.CN ---
Psychiatric Consult - . 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 REASON FOR REFERRAL: Psychiatry was consulted for night with alcohol intoxication and apparently suicidal ideations. Patient apparently had relapsed on alcohol according to ER report and has been drinking heavily. But alcohol level was 294. Patient was seen today laying in bed was awoken by insurance underwriter. She was fairly depressed and was tearful during the interview. She was claiming that she was drinking heavily since June, states that she was drinking about 1- 2 pints of vodka a day. States that she is "stressed lately" and explained that she has charges pending against her for child sexual misconduct and claims that she has upcoming court in January. Claims that she was already arranged for the charges. She was fairly vague about what had occurred and states that "it's all up to the Michele". She states she feels her psychiatric medications are not help ing her depression and anxiety and has been taking Librium with alcohol. She states that she has been feeling suicidal however his fairly vague about her plan. She states that "my life is basically over if they contact me" and claims that she does not have much to live for. States that she is feeling depressed crying a lot, endorsing anxiety. She states that when she does withdrawal from alcohol she does have visual hallucinations however not reporting them at this time, has a history of severe withdrawals in the past. States that she is not expressing any auditory hallucinations . denies any paranoia or delusions. Patients admits to using alcohol frequently as noted above, states that she has been the [place] once in the past. States that she smokes cigarettes daily. He has any other recreational drug use. PAST PSYCHIATRIC HISTORY: Patient has a a history of depression and anxiety, alcohol abuse. Patient is currently on Prozac and also Librium 3 times a day when necessary. [Patient denies any previous psychiatric hospitalizations.] [Patient denies any psychiatric outpatient follow-up however does state that she has a counselor at [facility] [Patient denies any history of suicide attempts in the past.] Past Medical History: Thyroid Disorder Additional Past Medical History / Comment(s): Graves disease, endometriosis History of Any Multi-Drug Resistant Organisms: None Reported Past Surgical History: Section Additional Past Surgical History / Comment(s): laporoscopy for endometrosis Past Anesthesia/Blood Transfusion Reactions: No Reported Reaction Past Psychological History: Anxiety, Depression Smoking Status: Vaper Past Alcohol Use History: Heavy Past Drug Use History: None Reported ALLERGIES: as per EMR. CHEMICAL DEPENDENCY HISTORY: as per HPI. FAMILY PSYCHIATRIC/SUBSTANCE USE HISTORY: And that her father was an alcoholic SOCIAL HISTORY: Patient was born and raised in [facility]. She states that she completed high school and did some nursing college. 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 She states that she is already arranged for the charges in June and upcoming court in January for child sexual misconduct. MENTAL STATUS EXAM: General Appearance: Patient appears to be laying in bed, lethargic, stated age is and cooperative. Tearful, evasive, Patient appears to have [fair] hygiene and grooming wearing hospital gown with [poor] eye contact. Behavior: [Patient is calmly lying in bed without any agitated behavior.] Evasive superficial. Tearful. Speech: Patient's speech is fluent and nonpressured. [place] Mood/Affect: Patient reports their mood is "[depressed and anxious]", affect is congruent and tearful Suicidality/Homicidality: Patient reports having suicidal thoughts, no specific plan. Denying any homicidal ideations. Perceptions: Patient denies any visual hallucinations [and denies any auditory hallucinations] Though content/process: There is no evidence of any delusional thought content and thought process is linear and goal-directed. [place]. Focused on her stressors. Memory and concentration: AOX3, grossly intact for the purposes of this session. Can spell "WORLD" backwards Judgment and insight: [poor] IMPRESSIONS: Major depressive disorder, without psychotic features Alcohol use disorder, currently in withdrawal Nicotine dependence Legal problems PLAN: -At this time patient DOES meet criteria for inpatient psychiatric admission. -Would recommend the following medication changes/additions: We'll start a Valium taper for alcohol withdrawal. Start Cymbalta 30 mg daily for mood/anxiety, trazodone 50 mg daily at bedtime for insomnia/mood. [-CIWA protocol with PRN Ativan for alcohol withdrawal. Continue to monitor vital signs.] [-Continue 1:1 sitter for safety] until patient is safely transferred to the mental health unit [-Cannot leave AMA at this time. Patient will need a petition and certification if attempting to leave AMA.] [-When medically stable, patient is eligible for transfer to a psych bed when available. patient should be medically treated on the medical floors for at leats 24 more hours before coming to psych for etoh w/d mgt.] [-Communicated plan to patient's nurse] [-Psychiatry will sign off at this time] -Please contact with any questions. 12/02/22 13:13
[2022-12-02 15:25] VITALS: BMI 21.6
[2022-12-02] MEDS: DULoxetine HCL 30 MG CAPSULE.DR PO SCH (15:53)
[2022-12-02] MEDS: diazePAM 5 MG TAB PO SCH ×3 (15:53→20:27)
[2022-12-02] MEDS: LORazepam 2 MG/ML INJ IV PRN (15:59)
[2022-12-02] MEDS ORDERED: IBUPROFEN 600 MG TAB PO PRN (17:30)
[2022-12-02] MEDS: traZODone HCL 50 MG TAB PO SCH (20:27)
[2022-12-03] MEDS: SODIUM CHLORIDE 0.9% 1,000 ML IV SCH ×3 (04:15→09:01)
[2022-12-03] MEDS: LEVOTHYROXINE 88 MCG TAB PO SCH (06:36)
[2022-12-03] MEDS: diazePAM 5 MG TAB PO SCH ×3 (08:56→20:03)
[2022-12-03] MEDS: THIAMINE 100 MG TAB PO SCH (08:56)
[2022-12-03] MEDS: DULoxetine HCL 30 MG CAPSULE.DR PO SCH (08:56)
[2022-12-03 10:36] LABS: African American GFR (CKD) >90 (>60 ml/min/1.73 sqM); Anion Gap 5 mmol/L; Blood Urea Nitrogen 10 mg/dL (7-17); Calcium 7.8 mg/dL (8.4-10.2); Carbon Dioxide 23 mmol/L (22-30); Chloride 107 mmol/L (98-107); Glucose 105 mg/dL (74-99); Non-African American GFR(CKD) >90 (>60 ml/min/1.73 sqM); Sodium 135 mmol/L (137-145)
[2022-12-03 10:58] LABS: Potassium 3.8 mmol/L (3.5-5.1)
[2022-12-03 13:05] LABS: Basophils % (A) 0 %; Eosinophils # (A) 0.1 k/uL (0-0.7); Eosinophils % (A) 2 %; HCT 39.4 % (34.0-46.0); HGB 13.4 gm/dL (11.4-16.0); Lymphocytes # (A) 1.4 k/uL (1.0-4.8); Lymphocytes % (A) 23 %; MCH 31.4 pg (25.0-35.0); MCHC 33.9 g/dL (31.0-37.0); MCV 92.7 fL (80.0-100.0); Mean Platelet Volume 8.6; Monocytes # (A) 0.3 k/uL (0-1.0); Monocytes % (A) 5 %; Neutrophils # (A) 4.1 k/uL (1.3-7.7); Neutrophils % (A) 68 %; Platelet Count 181 k/uL (150-450); RBC 4.25 m/uL (3.80-5.40); RDW 13.4 % (11.5-15.5); WBC 6.1 k/uL (3.8-10.6)
--- NOTE | 2022-12-03 19:51 | P.HPIM ---
History of Present Illness H&P Date: 12/02/22 Chief Complaint: Alcohol intoxication/suicidal ideation 42-year-old female presents with suicidal ideation. Patient had a relapse of large consumption of alcohol. Patient had approximately 34 pints of hard liquor today. She was in an argument and started to make suicidal comments. History of present illness obtained from friend and mother at the bedside. Patient apparently had relapsed on alcohol according to ER report and has been drinking heavily. But alcohol level was 294. Patient was seen today laying in bed was awoken by credit underwriter. She was fairly depressed and was tearful during the interview. She was claiming that she was drinking heavily since June, states that she was drinking about 1-2 pints of vodka a day. Blood work completed in ED reveals a negative obesity 5.7, hemoglobin of 14.1 and platelet count of 124, sodium 144, calcium 4.3, BUN/creatinine of 3/0.45 and blood glucose of 108, lactic acid level of 1.3, salicylate level of less than 1 and acetaminophen level of less than 10, serum alcohol level of 294 Review of Systems ROS unobtainable: due to mental status Past Medical History Past Medical History: Thyroid Disorder Additional Past Medical History / Comment(s): Graves disease, endometriosis History of Any Multi-Drug Resistant Organisms: None Reported Past Surgical History: Section Additional Past Surgical History / Comment(s): laporoscopy for endometrosis Past Anesthesia/Blood Transfusion Reactions: No Reported Reaction Past Psychological History: Anxiety, Depression Smoking Status: Current some day smoker, Vaper Past Alcohol Use History: Heavy Past Drug Use History: None Reported - Past Family History Father Family Medical History: Diabetes Mellitus Additional Family Medical History / Comment(s): Alcoholic, mental health issues Mother Family Medical History: Diabetes Mellitus Son(s) Family Medical History: Diabetes Mellitus Medications and Allergies Home Medications Medication Instructions Recorded Confirmed Type Levothyroxine Sodium [Synthroid] 88 mcg PO DAILY 10/08/21 12/02/22 History FLUoxetine HCL [PROzac] 20 mg PO DAILY 11/27/22 12/02/22 History chlordiazePOXIDE HCl [Librium] 10 mg PO TID PRN 11/27/22 12/02/22 History Allergies Allergy/AdvReac Type Severity Reaction Status Date / Time Sulfa (Sulfonamide Allergy Anaphylaxis Verified 12/02/22 07:48 Antibiotics) Physical Exam Vitals: Vital Signs Temp Pulse Pulse Resp BP BP Pulse Ox 12/02/22 12:18 98.4 F 72 15 93/52 97 12/02/22 08:00 97.6 F 78 14 103/62 98 12/02/22 05:23 97.6 F 63 14 91/52 98 12/02/22 00:00 98.2 F 78 20 113/78 98 Intake and Output 12/01/22 12/02/22 12/02/22 22:59 06:59 14:59 Intake Total 10 Balance 10 Intake: IV 10 Invasive Line 1 10 Other: # Voids 0 Weight 58.967 kg 58.967 kg - Constitutional General appearance: Present: average body habitus, cooperative, no acute distress - EENT Eyes: Present: anicteric sclerae, EOMI, PERRLA, normal appearance ENT: Present: hearing grossly normal, normal oropharynx Ears: bilateral: normal - Neck Neck: Present: normal ROM. Absent: lymphadenopathy, rigidity, thyromegaly Carotids: negative: bruit present Thyroid: bilateral: normal size, negative: enlarged, nodule - Respiratory Respiratory: bilateral: CTA, negative: rales, rhonchi, wheezing - Cardiovascular Rhythm: regular Heart sounds: normal: S1, S2 Abnormal Heart Sounds: Absent: systolic murmur, diastolic murmur - Gastrointestinal General gastrointestinal: Present: normal bowel sounds, soft. Absent: distended, organomegaly, tenderness - Genitourinary Genitourinary Comment(s): deferred - Integumentary Integumentary: Present: normal turgor. Absent: jaundiced, rash, ulcer - Neurologic Neurologic: Present: CNII-XII intact. Absent: focal deficits - Musculoskeletal Musculoskeletal: Present: gait normal, strength equal bilaterally - Psychiatric Psychiatric: Present: A&O x's 3, appropriate affect, intact judgment & insight Results CBC & Chem 7: 12/03/22 12:32 12/03/22 08:50 Labs: Abnormal Lab Results - Last 24 Hours (Table) 12/02/22 12/02/22 Range/Units 01:47 01:47 Plt Count 124 L (150-450) k/uL BUN 3 L (7-17) mg/dL Creatinine 0.45 L (0.52-1.04) mg/dL Glucose 108 H (74-99) mg/dL Serum Alcohol 294 H* mg/dL Thrombosis Risk Factor Assmnt - Choose All That Apply Any of the Below Risk Factors Present?: No Other Risk Factors: No Other congenital or acquired thrombophilia - If yes, enter type in comment: No Thrombosis Risk Factor Assessment Level: Very Low Risk Assessment and Plan Assessment: 1. Alcohol intoxication/pending withdrawal; blood alcohol level of 294 upon admission; patient has been placed on IV fluids in form of normal saline at rate of 1 30 mL an hour; continue with thiamine and folic acid; Protonix 40 mg daily; psych to see patient and make recommendations 2. Suicidal ideation; maintain suicidal precautions; psych has been consulted 3. Thrombocytopenia; likely related to chronic alcohol use; we will monitor and trend platelet count 4. Hypothyroidism; levothyroxine 88 MCG daily 5. Major depression; patient takes Prozac 20 mg daily which will be placed on hold to patient is evaluated by psychiatry DVT prophylaxis; SCDs CODE STATUS; full code
--- NOTE | 2022-12-03 19:52 | P.PN ---
Subjective Progress Note Date: 12/03/22 42-year-old female presents with suicidal ideation. Patient had a relapse of large consumption of alcohol. Patient had approximately 34 pints of hard liquor today. She was in an argument and started to make suicidal comments. History of present illness obtained from friend and mother at the bedside. Patient apparently had relapsed on alcohol according to ER report and has been drinking heavily. But alcohol level was 294. Patient was seen today laying in bed was awoken by mortgage or loan underwriter. She was fairly depressed and was tearful during the interview. She was claiming that she was drinking heavily since June, states that she was drinking about 1-2 pints of vodka a day. Blood work completed in ED reveals a negative obesity 5.7, hemoglobin of 14.1 and platelet count of 124, sodium 144, calcium 4.3, BUN/creatinine of 3/0.45 and blood glucose of 108, lactic acid level of 1.3, salicylate level of less than 1 and acetaminophen level of less than 10, serum alcohol level of 294 -- Patient is more awake and alert this morning; remains on IV fluids, CIWA protocol with Ativan - Patient has been evaluated by psych and is recommended inpatient mental health unit once clinically stable - Possible discharge in next 24 hours Objective - Vital Signs Vital signs: Vital Signs Temp 98.3 F 12/03/22 09:01 Pulse 73 12/03/22 09:01 Resp 16 12/03/22 09:01 BP 94/55 12/03/22 09:01 Pulse Ox 97 12/03/22 09:01 FiO2 Intake & Output 12/02/22 12/03/22 12/03/22 18:59 06:59 18:59 Intake Total 1300 118 Balance 1300 118 Weight 58.967 kg Intake: IV 20 Invasive Line 1 20 Intake, IV Titration 1040 Amount Sodium Chloride 0.9% 1, 1040 000 ml @ 130 mls/hr IV . [id number] JOSE ALBERTO Rx#:[id number] Oral 240 118 Other: # Voids 2 - Exam - Constitutional General appearance: Present: average body habitus, cooperative, no acute distress - EENT Eyes: Present: anicteric sclerae, EOMI, PERRLA, normal appearance ENT: Present: hearing grossly normal, normal oropharynx Ears: bilateral: normal - Neck Neck: Present: normal ROM. Absent: lymphadenopathy, rigidity, thyromegaly Carotids: negative: bruit present Thyroid: bilateral: normal size, negative: enlarged, nodule - Respiratory Respiratory: bilateral: CTA, negative: rales, rhonchi, wheezing - Cardiovascular Rhythm: regular Heart sounds: normal: S1, S2 Abnormal Heart Sounds: Absent: systolic murmur, diastolic murmur - Gastrointestinal General gastrointestinal: Present: normal bowel sounds, soft. Absent: distended, organomegaly, tenderness - Genitourinary Genitourinary Comment(s): deferred - Integumentary Integumentary: Present: normal turgor. Absent: jaundiced, rash, ulcer - Neurologic Neurologic: Present: CNII-XII intact. Absent: focal deficits - Musculoskeletal Musculoskeletal: Present: gait normal, strength equal bilaterally - Psychiatric Psychiatric: Present: A&O x's 3, appropriate affect, intact judgment & insight - Labs CBC & Chem 7: 12/03/22 12:32 12/03/22 08:50 Assessment and Plan Assessment: 1. Alcohol intoxication/pending withdrawal; blood alcohol level of 294 upon admission; patient has been placed on IV fluids in form of normal saline at rate of 1 30 mL an hour; continue with thiamine and folic acid; Protonix 40 mg daily; psych to see patient and make recommendations 2. Suicidal ideation; maintain suicidal precautions; psych has been consulted 3. Thrombocytopenia; likely related to chronic alcohol use; we will monitor and trend platelet count 4. Hypothyroidism; levothyroxine 88 MCG daily 5. Major depression; patient takes Prozac 20 mg daily which will be placed on hold to patient is evaluated by psychiatry DVT prophylaxis; SCDs CODE STATUS; full code
[2022-12-03] MEDS: traZODone HCL 50 MG TAB PO SCH (20:03)
[2022-12-04] MEDS: LEVOTHYROXINE 88 MCG TAB PO SCH (06:26)
[2022-12-04] MEDS: THIAMINE 100 MG TAB PO SCH (09:01)
[2022-12-04] MEDS: DULoxetine HCL 30 MG CAPSULE.DR PO SCH (09:01)
[2022-12-04] MEDS: diazePAM 5 MG TAB PO SCH ×3 (09:02→20:27)
[2022-12-04 12:16] LABS: African American GFR (CKD) >90 (>60 ml/min/1.73 sqM); Anion Gap 6 mmol/L; Blood Urea Nitrogen 7 mg/dL (7-17); Calcium 8.7 mg/dL (8.4-10.2); Carbon Dioxide 30 mmol/L (22-30); Chloride 99 mmol/L (98-107); Glucose 93 mg/dL (74-99); Non-African American GFR(CKD) >90 (>60 ml/min/1.73 sqM); Potassium 3.9 mmol/L (3.5-5.1); Sodium 135 mmol/L (137-145)
--- NOTE | 2022-12-04 16:47 | P.PN ---
Subjective Progress Note Date: 12/04/22 42-year-old female presents with suicidal ideation. Patient had a relapse of large consumption of alcohol. Patient had approximately 34 pints of hard liquor today. She was in an argument and started to make suicidal comments. History of present illness obtained from friend and mother at the bedside. Patient apparently had relapsed on alcohol according to ER report and has been drinking heavily. But alcohol level was 294. Patient was seen today laying in bed was awoken by manual writer. She was fairly depressed and was tearful during the interview. She was claiming that she was drinking heavily since June, states that she was drinking about 1-2 pints of vodka a day. Blood work completed in ED reveals a negative obesity 5.7, hemoglobin of 14.1 and platelet count of 124, sodium 144, calcium 4.3, BUN/creatinine of 3/0.45 and blood glucose of 108, lactic acid level of 1.3, salicylate level of less than 1 and acetaminophen level of less than 10, serum alcohol level of 294 -- Patient is more awake and alert this morning; remains on IV fluids, CIWA protocol with Ativan - Patient has been evaluated by psych and is recommended inpatient mental health unit once clinically stable - Possible discharge in next 24 hours 12/04/2022 Patient is admitted with family and nursing staff at bedside; IV site somewhat swollen; left antecubital fossa, as well as some induration and tenderness but no erythema or inflammation; we will monitor - Patient to be evaluated by psych for approval for transfer to mental health unit - Patient remains medically stable and will resume current medications including levothyroxine, trazodone, thiamine, Cymbalta and Valium when necessary Disposition; stable to be transferred to medical floor once that has opened up on psych floor Objective - Vital Signs Vital signs: Vital Signs Temp 98.1 F 12/04/22 03:13 Pulse 61 12/04/22 11:12 Resp 16 12/04/22 11:12 BP 116/70 12/04/22 11:12 Pulse Ox 99 12/04/22 11:12 FiO2 Intake & Output 12/03/22 12/04/22 12/04/22 18:59 06:59 18:59 Intake Total 1428 10 Balance 1428 10 Intake: IV 10 10 Invasive Line 1 10 10 Intake, IV Titration 520 Amount Sodium Chloride 0.9% 1, 520 000 ml @ 130 mls/hr IV . Q7H42M [facility] Rx#:[id number] Oral 898 - Exam - Constitutional General appearance: Present: average body habitus, cooperative, no acute distress - EENT Eyes: Present: anicteric sclerae, EOMI, PERRLA, normal appearance ENT: Present: hearing grossly normal, normal oropharynx Ears: bilateral: normal - Neck Neck: Present: normal ROM. Absent: lymphadenopathy, rigidity, thyromegaly Carotids: negative: bruit present Thyroid: bilateral: normal size, negative: enlarged, nodule - Respiratory Respiratory: bilateral: CTA, negative: rales, rhonchi, wheezing - Cardiovascular Rhythm: regular Heart sounds: normal: S1, S2 Abnormal Heart Sounds: Absent: systolic murmur, diastolic murmur - Gastrointestinal General gastrointestinal: Present: normal bowel sounds, soft. Absent: distended, organomegaly, tenderness - Genitourinary Genitourinary Comment(s): deferred - Integumentary Integumentary: Present: normal turgor. Absent: jaundiced, rash, ulcer - Neurologic Neurologic: Present: CNII-XII intact. Absent: focal deficits - Musculoskeletal Musculoskeletal: Present: gait normal, strength equal bilaterally - Psychiatric Psychiatric: Present: A&O x's 3, appropriate affect, intact judgment & insight - Labs CBC & Chem 7: 12/03/22 12:32 12/04/22 10:35 Labs: Abnormal Lab Results - Last 24 Hours (Table) 12/04/22 Range/Units 10:35 Sodium 135 L (137-145) mmol/L Creatinine 0.51 L (0.52-1.04) mg/dL Assessment and Plan Assessment: 1. Alcohol intoxication/pending withdrawal; blood alcohol level of 294 upon admission; patient has been placed on IV fluids in form of normal saline at rate of 1 30 mL an hour; continue with thiamine and folic acid; Protonix 40 mg daily; psych to see patient and make recommendations 2. Suicidal ideation; maintain suicidal precautions; psych has been consulted 3. Thrombocytopenia; likely related to chronic alcohol use; we will monitor and trend platelet count 4. Hypothyroidism; levothyroxine 88 MCG daily 5. Major depression; patient takes Prozac 20 mg daily which will be placed on hold to patient is evaluated by psychiatry DVT prophylaxis; SCDs CODE STATUS; full code
[2022-12-04] MEDS: IBUPROFEN 600 MG TAB PO SCH (20:27)
[2022-12-04] MEDS: CEPHALEXIN 500 MG CAP PO SCH (20:27)
[2022-12-04] MEDS: traZODone HCL 50 MG TAB PO SCH (20:27)
[2022-12-04] MEDS ORDERED: IBUPROFEN 600 MG TAB PO SCH (22:00)
[2022-12-04 22:33] LABS: Glucose,Whole Blood 102 mg/dL (70-110)
[2022-12-04] MEDS: LORazepam 2 MG/ML INJ IV PRN (23:07)
[2022-12-05] MEDS: LEVOTHYROXINE 88 MCG TAB PO SCH (05:41)
[2022-12-05] MEDS: DULoxetine HCL 30 MG CAPSULE.DR PO SCH (08:31)
[2022-12-05] MEDS: IBUPROFEN 600 MG TAB PO SCH ×3 (08:31→22:03)
[2022-12-05] MEDS: THIAMINE 100 MG TAB PO SCH (08:31)
[2022-12-05] MEDS: diazePAM 5 MG TAB PO SCH ×3 (08:32→22:16)
[2022-12-05] MEDS: CEPHALEXIN 500 MG CAP PO SCH ×3 (08:32→22:02)
[2022-12-05 09:45] LABS: Basophils % (A) 0 %; Eosinophils # (A) 0.1 k/uL (0-0.7); Eosinophils % (A) 3 %; HCT 40.8 % (34.0-46.0); HGB 13.5 gm/dL (11.4-16.0); Lymphocytes # (A) 1.2 k/uL (1.0-4.8); Lymphocytes % (A) 26 %; MCHC 33.1 g/dL (31.0-37.0); MCV 93.9 fL (80.0-100.0); Mean Platelet Volume 8.5; Monocytes # (A) 0.3 k/uL (0-1.0); Monocytes % (A) 8 %; Neutrophils # (A) 2.8 k/uL (1.3-7.7); Neutrophils % (A) 62 %; Platelet Count 163 k/uL (150-450); RBC 4.34 m/uL (3.80-5.40); RDW 13.3 % (11.5-15.5); WBC 4.5 k/uL (3.8-10.6)
[2022-12-05 09:53] LABS: African American GFR (CKD) >90 (>60 ml/min/1.73 sqM); Anion Gap 4 mmol/L; Blood Urea Nitrogen 13 mg/dL (7-17); Calcium 8.8 mg/dL (8.4-10.2); Carbon Dioxide 30 mmol/L (22-30); Chloride 102 mmol/L (98-107); Glucose 93 mg/dL (74-99); Non-African American GFR(CKD) >90 (>60 ml/min/1.73 sqM); Potassium 4.4 mmol/L (3.5-5.1); Sodium 136 mmol/L (137-145)
[2022-12-05] MEDS: LORazepam 2 MG/ML INJ IV PRN (14:09)
[2022-12-05] MEDS ORDERED: VANCOMYCIN IV PER PHARMACY 1 EACH MISC MISCELLANE PRN (16:32)
[2022-12-05] MEDS ORDERED: VANCOMYCIN 1,000 MG in SODIUM CHLORIDE 0.9% 250 ML IVPB ONE (17:00)
[2022-12-05] MEDS: traZODone HCL 50 MG TAB PO SCH (22:17)
--- NOTE | 2022-12-05 23:23 | P.CONS ---
History of Present Illness - Reason for Consult Consult date: 12/05/22 - History of Present Illness patient is a 42-year-old female with a past medical history sniffing and for Graves' disease endometriosis presented to the hospital 12/02/2022 for alcohol intoxication and suicidal ideation patient apparently did have a 34 pints of hard liquor the day of presentation the hospital he was in argument and started to make suicidal comment and the patient was subsequently brought to the hospital with a sitter at the bedside patient did have a IV to the right antecubital fossa that was placed in the ER and yesterday she was noticed having increasing swelling redness at the IV site which was discontinued this morning the patient was noticed to have more swelling and redness and the patient complaining of pain describing a BTB throbbing 6-7 out of 10 radiation no drainage patient has been afebrile and no fever has been recorded subsequently patient did have normal white count kidney function has been normal Case discussed with admitting physician blood culture has been ordered patient was started on vancomycin infectious disease was consulted for further management of antibiotic therapy concerning for abscess cellulitis to the right IV site Past Medical History Past Medical History: Thyroid Disorder Additional Past Medical History / Comment(s): Graves disease, endometriosis History of Any Multi-Drug Resistant Organisms: None Reported Past Surgical History: Section Additional Past Surgical History / Comment(s): laporoscopy for endometrosis Past Anesthesia/Blood Transfusion Reactions: No Reported Reaction Past Psychological History: Anxiety, Depression Smoking Status: Current some day smoker, Vaper Past Alcohol Use History: Heavy Past Drug Use History: None Reported - Past Family History Father Family Medical History: Diabetes Mellitus Additional Family Medical History / Comment(s): Alcoholic, mental health issues Mother Family Medical History: Diabetes Mellitus Son(s) Family Medical History: Diabetes Mellitus Medications and Allergies Home Medications Medication Instructions Recorded Confirmed Type Levothyroxine Sodium [Synthroid] 88 mcg PO DAILY 10/08/21 12/02/22 History FLUoxetine HCL [PROzac] 20 mg PO DAILY 11/27/22 12/02/22 History chlordiazePOXIDE HCl [Librium] 10 mg PO TID PRN 11/27/22 12/02/22 History Allergies Allergy/AdvReac Type Severity Reaction Status Date / Time Sulfa (Sulfonamide Allergy Anaphylaxis Verified 12/02/22 07:48 Antibiotics) Physical Exam Vitals: Vital Signs Temp Pulse Resp BP Pulse Ox 12/05/22 16:00 98.0 F 75 14 102/67 98 12/05/22 14:00 59 L 14 12/05/22 12:00 98.1 F 59 L 14 92/57 99 12/05/22 08:00 97.7 F 54 L 16 105/61 99 12/05/22 04:39 97.5 F L 56 L 16 105/63 98 12/05/22 02:00 67 16 12/04/22 23:00 98.2 F 67 16 121/78 97 12/04/22 20:00 98.4 F 66 14 115/76 98 Intake and Output 12/05/22 12/05/22 12/05/22 06:59 14:59 22:59 Intake Total 600 Balance 600 Intake: Oral 600 Other: # Voids 2 1 Results CBC & Chem 7: 12/05/22 08:27 12/05/22 08:27 Labs: Abnormal Lab Results - Last 24 Hours (Table) 12/05/22 Range/Units 08:27 Sodium 136 L (137-145) mmol/L Creatinine 0.48 L (0.52-1.04) mg/dL Assessment and Plan Plan: 1patient with a right upper arm swelling redness site of the previous IV has been discontinued concerning for IV site cellulitis and concern for possible superficial thrombophlebitis, we will need to cover for the gram-positive skin shanell to be the likely pathogen. 2blood cultures have been obtained and results will be followed, we will check Doppler ultrasound of the right upper extremity rule out SVT and DVT. 3vancomycin pharmacy to dose with a target trough of 15 while watching kidney function and Vanco trough closely. We will follow on clinical condition and cultures to further adjust medication if needed Thank you for this consultation we will follow the patient along with you Dictation was produced using [employer] dictation software. please excuse any grammatical, word or spelling errors. Time with Patient: Greater than 30
[2022-12-06] MEDS: VANCOMYCIN 1,000 MG in SODIUM CHLORIDE 0.9% 250 ML IVPB SCH ×3 (06:30→22:04)
[2022-12-06] MEDS: LEVOTHYROXINE 88 MCG TAB PO SCH (06:41)
[2022-12-06] MEDS: IBUPROFEN 600 MG TAB PO SCH ×3 (10:32→20:51)
[2022-12-06] MEDS: CEPHALEXIN 500 MG CAP PO SCH ×3 (10:33→20:51)
[2022-12-06] MEDS: diazePAM 5 MG TAB PO SCH ×3 (10:33→20:51)
[2022-12-06] MEDS: THIAMINE 100 MG TAB PO SCH (10:33)
[2022-12-06] MEDS: DULoxetine HCL 30 MG CAPSULE.DR PO SCH (10:33)
--- NOTE | 2022-12-06 12:41 | US ---
EXAMINATION TYPE: US venous doppler duplex UE RT DATE OF EXAM: 12/06/2022 COMPARISON: NONE CLINICAL INDICATION: Female, 42 years old with history of swelling; Pt states pain right antecubital fossa in area pt recently had IV site SIDE PERFORMED: Right Right Arm: Negative for DVT, positive SVT within right cephalic antecubital fossa in area of pt's vidhya n and prior IV site IMPRESSION: 1. No evidence for DVT within the right upper extremity. 2. Exam positive for SVT involving the right cephalic vein at the antecubital fossa corresponding to the area of patient's pain and prior IV site.
[2022-12-06] MEDS: LORazepam 2 MG/ML INJ IV PRN (14:52)
--- NOTE | 2022-12-06 15:05 | P.DS ---
Providers Date of admission: 12/02/22 02:13 Expected date of discharge: 12/06/22 Attending physician: Giovani Neves Consults: 12/02/22 02:13 Consult Physician Routine Consulting Provider: Nash Huang Consult Reason/Comments: suicidal ideation Do you want consulting provider notified?: Yes Primary care physician: Rick rAellano Hospital Course: Final diagnosis -Alcohol intoxication with acute alcohol withdrawal -Suicidal ideation; maintain suicidal precautions; psych has been consulted -Acute right antecubital superficial venous thrombosis from IV site with concern s of surrounding cellulitis -Thrombocytopenia; likely related to chronic alcohol use -Hypothyroidism -Major depression -DVT prophylaxis; SCDs -full code Discharge disposition Patient is being transferred in a stable condition with guarded prognosis [facility] for further psychiatric evaluation. Patient will follow-up with Dr. Arellano in the outpatient setting upon discharge. Patient is to continue with oral doxycycline 100 mg twice daily for the next 7 days per ID recommendations and elevating right upper extremity while at rest and as much as possible. Total time taken is greater than 35 minutes. Hospital course This is a 42-year-old female who was recently admitted with acute alcohol intoxication with concerns of alcohol withdrawal maintained on CIWA protocol. Patient seen and evaluated by psychiatry for suicidal ideations and meets criteria for inpatient psychiatric unit and awaiting a bed. Patient has been medically cleared and cleared by infectious disease to continue on doxycycline 100 mg twice daily for the next 7 days for a superficial thrombophlebitis of the right antecubital area where previous IV site was. Patient has been instructed to follow-up with [facility] along with primary care provider on discharge. Patient continued on suicide precautions for suicide sitter while hospitalized. Patient is medically stable for [facility] once a bed becomes available. Currently no reports of chest pain, shortness of breath, or palpitations. Patient is afebrile. No reports of nausea or vomiting and patient is tolerating diet. Patient will be going [facility] today. Physical exam: Gen: This is a 42-year-old female who is awake, alert and oriented 3, well- developed, well-nourished HEENT: Head is atraumatic, normocephalic. Pupils equal, round. Sclerae is anicteric. NECK: Supple. No JVD. No lymphadenopathy. No thyromegaly. LUNGS: Clear to auscultation. No wheezes or rhonchi. No intercostal retractions. HEART: Regular rate and rhythm. No murmur. ABDOMEN: Soft. Bowel sounds are present. No masses. No tenderness. EXTREMITIES: No pedal edema. No calf tenderness. Right IV antecubital site with some mild redness and induration noted of the upper right extremity with minimal redness noted NEUROLOGICAL: Patient is awake, alert and oriented x3. Cranial nerves 2 through 12 are grossly intact. Please refer to medication reconciliation sheet for a list of medications. The impression and plan of care has been dictated by Alessandra Blanc, Nurse Practitioner as directed. Dr. Edinson MD I have performed a history and examination and MDM of this patient, discussed the same with the dictator, and agree with the dictator's assessment and plan as written ,documented as a scribe. Based on total visit time, I have performed more than 50% of the visit. Patient Condition at Discharge: Fair Plan - Discharge Summary Discharge Rx Participant: Yes New Discharge Prescriptions: New DULoxetine HCL [Cymbalta] 30 mg PO DAILY cap Ibuprofen [Motrin] 600 mg PO TID tab diazePAM [Valium] 5 mg PO TID tab traZODone HCL [Desyrel] 50 mg PO HS tab Thiamine [Vitamin B-1] 100 mg PO DAILY tab Doxycycline [Vibramycin] 100 mg PO BID 7 Days #14 capsule Continue chlordiazePOXIDE HCl [Librium] 10 mg PO TID PRN PRN Reason: Alcohol Withdrawal Levothyroxine Sodium [Synthroid] 88 mcg PO DAILY Discontinued FLUoxetine HCL [PROzac] 20 mg PO DAILY Discharge Medication List Levothyroxine Sodium [Synthroid] 88 mcg PO DAILY 10/08/21 [History] chlordiazePOXIDE HCl [Librium] 10 mg PO TID PRN 11/27/22 [History] DULoxetine HCL [Cymbalta] 30 mg PO DAILY cap 12/06/22 [Rx] Doxycycline [Vibramycin] 100 mg PO BID 7 Days #14 capsule 12/06/22 [Rx] Ibuprofen [Motrin] 600 mg PO TID tab 12/06/22 [Rx] Thiamine [Vitamin B-1] 100 mg PO DAILY tab 12/06/22 [Rx] diazePAM [Valium] 5 mg PO TID tab 12/06/22 [Rx] traZODone HCL [Desyrel] 50 mg PO HS tab 12/06/22 [Rx] Follow up Appointment(s)/Referral(s): Rick Arellano MD [Primary Care Provider] - 1-2 days
[2022-12-06] MEDS: traZODone HCL 50 MG TAB PO SCH (20:51)
[2022-12-06] MEDS ORDERED: diphenhydrAMINE 25 MG CAP PO PRN (21:33)
[2022-12-06] MEDS ORDERED: LORazepam 1 MG TAB PO PRN ×2 (21:34)
[2022-12-07] MEDS ORDERED: VANCOMYCIN TROUGH DUE 1 EACH MISC MISCELLANE ONE (05:00)
[2022-12-07 05:48] LABS: African American GFR (CKD) >90 (>60 ml/min/1.73 sqM); Non-African American GFR(CKD) >90 (>60 ml/min/1.73 sqM)
[2022-12-07] MEDS: LEVOTHYROXINE 88 MCG TAB PO SCH (06:53)
--- NOTE | 2022-12-07 07:45 | P.PN ---
Subjective Progress Note Date: 12/06/22 Principal diagnosis: R arm IV site cellulitis/phlebitis patient is a 42-year-old female with a past medical history sniffing and for Graves' disease endometriosis presented to the hospital 12/02/2022 for alcohol intoxication and suicidal ideation, patient did have a IV to the right antecubital. That got infected with increasing swelling redness IV was discontinued. On today's evaluation that is 10/05/2022 patient denies having any fever or any chills breathing comfortably right upper arm swelling redness slightly decreased no nausea vomiting no abdominal pain or diarrhea. Patient did have a creatinine 0.71 Vanco trough was low at 6.7 blood cultures pending right upper extremity Doppler negative for DVT did shows SVT involving the right cephalic vein Objective - Vital Signs Vital signs: Vital Signs Temp 97.5 F L 12/06/22 04:00 Pulse 57 L 12/06/22 04:00 Resp 16 12/06/22 04:00 BP 100/65 12/06/22 04:00 Pulse Ox 99 12/06/22 04:00 FiO2 Intake & Output 12/05/22 12/06/22 12/06/22 18:59 06:59 18:59 Intake Total 600 120 Balance 600 120 Intake: Oral 600 120 Other: # Voids 1 1 1 - Exam GENERAL DESCRIPTION: Middle-age female lying in bed in no distress RESPIRATORY SYSTEM: Unlabored breathing , decreased breath sounds at bases HEART: S1 S2 regular rate and rhythm ,no loud murmurs ABDOMEN: Soft , no tenderness EXTREMITIES: Right arm swelling redness slightly decreased - Labs CBC & Chem 7: 12/05/22 08:27 12/07/22 05:00 Assessment and Plan (1) Right arm cellulitis Current Visit: Yes Status: Acute Code(s): L03.113 - CELLULITIS OF RIGHT UPPER LIMB SNOMED Code(s): 698513596 Plan: 1patient with a right upper arm swelling redness site of the previous IV has been discontinued concerning for IV site cellulitis and concern for possible superficial thrombophlebitis, we will need to cover for the gram-positive skin shanell to be the likely pathogen. blood cultures are currently pending Doppler ultrasound did shows evidence of SVT no DVT. 3patient to continue with the vancomycin pharmacy to dose and will transition to oral doxycycline on transfer to the psych floor, discussed with FIELD OPERATIONS MANAGER working on discharge Dictation was produced using [employer] software. please excuse any grammatical, word or spelling errors.
[2022-12-07] MEDS ORDERED: DOXYCYCLINE 100 MG CAP PO SCH (09:00)
[2022-12-07] MEDS: DULoxetine HCL 30 MG CAPSULE.DR PO SCH (09:41)
[2022-12-07] MEDS: IBUPROFEN 600 MG TAB PO SCH (09:41)
[2022-12-07] MEDS: diazePAM 5 MG TAB PO SCH (09:41)
[2022-12-07] MEDS: THIAMINE 100 MG TAB PO SCH (09:41)
[2022-12-07 11:11] VITALS: BP 92/58; PULSE 63; RESP 12; TEMP 97.8
--- NOTE | 2022-12-07 18:43 | DS ---
DISCHARGE SUMMARY ADDENDUM: HISTORY OF PRESENT ILLNESS: This is a 42-year-old woman, who was admitted with alcohol intoxication and will be transferred to inpatient psych. Please refer to my previous dictation for list of medications and also diagnoses. PHYSICAL EXAMINATION: VITAL SIGNS: Stable. CARDIOVASCULAR: S1 and S2. ABDOMEN: Soft. NERVOUS SYSTEM: Nonfocal. LABORATORY DATA: Reviewed. MMSU / MIGUELINAN: [id number] /
--- NOTE | 2022-12-07 18:52 | PN ---
PROGRESS NOTE DATE OF SERVICE: 12/06/2022 SUBJECTIVE: This is a 42-year-old woman, who was admitted with alcohol intoxication. She also had thrombophlebitis on the left forearm. No chest pain. No palpitations. No fever. OBJECTIVE: VITAL SIGNS: Stable. CARDIOVASCULAR: S1 and S2. ABDOMEN: Soft. NERVOUS SYSTEM: Nonfocal. EXTREMITIES: Show the left forearm tenderness present associated with superficial thrombophlebitis. ASSESSMENT: 1. Alcohol intoxication. 2. Superficial thrombophlebitis on the 3. Thrombocytopenia. 4. Hypothyroidism. RECOMMENDATIONS: Recommend to continue current medications. Continue symptomatic treatment. Continue with antibiotics and closely follow with Infectious Disease and Psychiatry and transfer to Psych. MMODL / MIGUELINAN: [id number] / MTDD
== END 2022-12-07 15:14 | DRG 197 ==
LOC: EC 23:57 → 4SSUR 12-02 02:13 → OBSVTOIN 12-02 02:14 → 3SCARD 12-02 03:37
PROVIDERS: ADMIT Hospitalist; ATTEND Hospitalist
PROC: HZ2ZZZZ Detoxification Services for Substance Abuse Treatment (ICD-10-PCS; principal; 2022-12-02)
DX: I82.611 Acute embolism and thrombosis of superficial veins of right upper extremity (principal); L03.113 Cellulitis of right upper limb; D69.59 Other secondary thrombocytopenia; E03.9 Hypothyroidism, unspecified; F60.3 Borderline personality disorder; I80.8 Phlebitis and thrombophlebitis of other sites; F10.239 Alcohol dependence with withdrawal, unspecified; F31.9 Bipolar disorder, unspecified; R45.851 Suicidal ideations; F10.229 Alcohol dependence with intoxication, unspecified; Z79.899 Other long term (current) drug therapy; Z79.890 Hormone replacement therapy; Y84.8 Other medical procedures as the cause of abnormal reaction of the patient, or of later complication, without mention of misadventure at the time of the procedure; Y90.8 Blood alcohol level of 240 mg/100 ml or more; Z76.5 Malingerer [conscious simulation]; Z86.72 Personal history of thrombophlebitis; Z88.2 Allergy status to sulfonamides; F17.290 Nicotine dependence, other tobacco product, uncomplicated; F10.288 Alcohol dependence with other alcohol-induced disorder
CPT/HCPCS: 36415; 80048; 80053; 80143; 80179; 80202; 80320; 82565; 83605; 83735; 85025; 87040; 87635; 96361; 96372; 96374; 96375; 99285

== ENCOUNTER 2022-12-07 14:21 | Inpatient (IN) | payer MEDICAID, OTHER ==
[2022-12-07] MEDS ORDERED: IBUPROFEN 600 MG TAB PO PRN (14:28)
[2022-12-07] MEDS ORDERED: MAGNESIUM HYDROXIDE 2,400 MG/30 ML CUP PO PRN (14:28)
[2022-12-07] MEDS ORDERED: ACETAMINOPHEN TAB 325 MG TAB PO PRN (14:28)
[2022-12-07] MEDS ORDERED: MAG HYDROX/AL HYDROX/SIMETH 30 ML CUP PO PRN (14:28)
[2022-12-07] MEDS ORDERED: LORazepam 1 MG TAB PO PRN ×2 (14:28)
[2022-12-07] MEDS ORDERED: diazePAM 5 MG TAB PO PRN (14:28)
[2022-12-07] MEDS ORDERED: hydrOXYzine HCL 25 MG TAB PO PRN (14:28)
[2022-12-07] MEDS ORDERED: diazePAM 5 MG TAB PO SCH (16:00)
[2022-12-07] MEDS: traZODone HCL 50 MG TAB PO SCH (20:14)
[2022-12-07] MEDS: DOXYCYCLINE 100 MG CAP PO SCH (20:14)
[2022-12-08] MEDS: LEVOTHYROXINE 88 MCG TAB PO SCH (06:11)
[2022-12-08 07:18] LABS: African American GFR (CKD) >90 (>60 ml/min/1.73 sqM); Anion Gap 3 mmol/L; Blood Urea Nitrogen 17 mg/dL (7-17); Calcium 8.9 mg/dL (8.4-10.2); Carbon Dioxide 30 mmol/L (22-30); Chloride 102 mmol/L (98-107); Glucose 88 mg/dL (74-99); Non-African American GFR(CKD) >90 (>60 ml/min/1.73 sqM); Potassium 4.7 mmol/L (3.5-5.1); Sodium 135 mmol/L (137-145)
[2022-12-08 07:21] LABS: Basophils % (A) 0 %; Eosinophils # (A) 0.3 k/uL (0-0.7); Eosinophils % (A) 6 %; HCT 40.8 % (34.0-46.0); HGB 13.6 gm/dL (11.4-16.0); Lymphocytes # (A) 1.1 k/uL (1.0-4.8); Lymphocytes % (A) 23 %; MCH 31.7 pg (25.0-35.0); MCHC 33.2 g/dL (31.0-37.0); MCV 95.4 fL (80.0-100.0); Mean Platelet Volume 7.9; Monocytes # (A) 0.3 k/uL (0-1.0); Monocytes % (A) 6 %; Neutrophils # (A) 3.2 k/uL (1.3-7.7); Neutrophils % (A) 64 %; Platelet Count 198 k/uL (150-450); RBC 4.28 m/uL (3.80-5.40); RDW 13.2 % (11.5-15.5)
[2022-12-08] MEDS: THIAMINE 100 MG TAB PO SCH (08:39)
[2022-12-08] MEDS: diphenhydrAMINE 25 MG CAP PO PRN ×3 (08:39→23:15)
[2022-12-08] MEDS: DOXYCYCLINE 100 MG CAP PO SCH ×2 (08:39→21:47)
[2022-12-08] MEDS ORDERED: THIAMINE 100 MG TAB PO SCH (09:00)
[2022-12-08] MEDS ORDERED: DULoxetine HCL 30 MG CAPSULE.DR PO SCH (09:00)
[2022-12-08] MEDS ORDERED: OLANZapine 10 MG VIAL IM PRN (11:57)
[2022-12-08] MEDS ORDERED: OLANZapine 5 MG TAB PO PRN (11:57)
--- NOTE | 2022-12-08 12:05 | P.HP ---
Psychiatric H&P - . 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 History of present illness: Patient was seen last week for psych consultation and as per note "Psychiatry was consulted for night with alcohol intoxication and apparently suicidal ideations. Patient apparently had relapsed on alcohol according to ER report and has been drinking heavily. But alcohol level was 294. Patient was seen today laying in bed was awoken by job specification writer. She was fairly depressed and was tearful during the interview. She was claiming that she was drinking heavily since June, states that she was drinking about 1-2 pints of vodka a day. States that she is "stressed lately" and explained that she has charges pending against her for child sexual misconduct and claims that she has upcoming court in January. Claims that she was already arranged for the charges. She was fairly vague about what had occurred and states that "it's all up to the Michele". She states she feels her psychiatric medications are not helping her depression and anxiety and has been taking Librium with alcohol. She states that she has been feeling suicidal however his fairly vague about her plan. She states that "my life is basically over if they contact me" and claims that she does not have much to live for. States that she is feeling depressed crying a lot, endorsing anxiety. She states that when she does withdrawal from alcohol she does have visual hallucinations however not reporting them at this time, has a history of severe withdrawals in the past. States that she is not expressing any auditory hallucinations . denies any paranoia or delusions. Patients admits to using alcohol frequently as noted above, states that she has been the [place] once in the past. States that she smokes cigarettes daily. He has any other recreational drug use." Patient was seen today for psych assessment. she was seen to have a infection on her arm and was seen by ID and placed on vanco drip. claims that her mood is still depressed, its her daughters birthday. not anxious today. denies any SI or HI, denies any Ah or VH. sleep mildly improved. sleep is improving mildly. PAST PSYCHIATRIC HISTORY: Patient has a a history of depression and anxiety, alcohol abuse. Patient is currently on Prozac and also Librium 3 times a day when necessary. [Patient denies any previous psychiatric hospitalizations.] [Patient denies any psychiatric outpatient follow-up however does state that she has a counselor at [facility] in [facility].] [Patient denies any history of suicide attempts in the past.] Past Medical History: Thyroid Disorder Additional Past Medical History / Comment(s): Graves disease, endometriosis History of Any Multi-Drug Resistant Organisms: None Reported Past Surgical History: Section Additional Past Surgical History / Comment(s): laporoscopy for endometrosis Past Anesthesia/Blood Transfusion Reactions: No Reported Reaction Past Psychological History: Anxiety, Depression Smoking Status: Vaper Past Alcohol Use History: Heavy Past Drug Use History: None Reported ALLERGIES: as per EMR. CHEMICAL DEPENDENCY HISTORY: as per HPI. FAMILY PSYCHIATRIC/SUBSTANCE USE HISTORY: And that her father was an alcoholic SOCIAL HISTORY: Patient was born and raised in [facility]. She states that she completed high school and did some nursing college. 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 She states that she is already arranged for the charges in June and upcoming court in January for child sexual misconduct. MENTAL STATUS EXAM: General Appearance: Patient appears to be laying in bed, lethargic, stated age is and cooperative. Patient appears to have [fair] hygiene and grooming wearing hospital gown with [poor] eye contact. Behavior: [Patient is calmly lying in bed without any agitated behavior.] more cooperative. Speech: Patient's speech is fluent and nonpressured. [place] Mood/Affect: Patient reports their mood is "[depressed and anxious]", affect is congruent and constricted Suicidality/Homicidality: Patient reports having suicidal thoughts, no specific plan. Denying any homicidal ideations. Perceptions: Patient denies any visual hallucinations [and denies any auditory hallucinations] Though content/process: There is no evidence of any delusional thought content and thought process is linear and goal-directed. [place]. Memory and concentration: AOX3, grossly intact for the purposes of this session. Can spell "WORLD" backwards Judgment and insight: [poor], improving mildly IMPRESSIONS: Major depressive disorder, without psychotic features Alcohol use disorder, severe dependence Nicotine dependence Legal problems PLAN: -Patient is admitted under [voluntary] status to [facility] for stabilization of psychiatric symptoms and safety. Patient has signed [adult voluntary form and] [medication consent] and is placed in patient's chart. -Medications : cymbalta increase to 30 mg bid for anxiety/mood, trazodone 50 mg qhs for insomnia/mood. naltrexone 50 mg daily for etoh cravings. reordered comp panel to check lfts. d/c ciwa and bzd due to patient being out of withdrawal window. -vistaril and zyprexa PRN for agitation/aggression [-Started thiamine, MVM for etoh use] [-Patient was counselled on substance abuse and desired to cut back on use]. currently awaiting to hear back from rehab -Patient was informed of the risks, benefits and side effects of the medication and patient verbally consented to taking the medications. Patient signed med consent form and was placed in chart. -Internal Medicine consult to perform medical evaluation and physical. -NRT - [nicotine patch] -SW on board for discharge planning. Encourage patient to participate in groups to work on coping skills. 12/08/22 12:01 12/08/22 12:02
[2022-12-08] MEDS: NICOTINE 14MG/24HR PATCH TRANSDERM SCH (12:15)
[2022-12-08] MEDS: DULoxetine HCL 30 MG CAPSULE.DR PO SCH (21:45)
[2022-12-08] MEDS: traZODone HCL 50 MG TAB PO SCH (21:45)
[2022-12-09] MEDS: LEVOTHYROXINE 88 MCG TAB PO SCH (05:22)
[2022-12-09] MEDS: NICOTINE 14MG/24HR PATCH TRANSDERM SCH (08:36)
[2022-12-09] MEDS: DOXYCYCLINE 100 MG CAP PO SCH ×2 (08:37→20:45)
[2022-12-09] MEDS: DULoxetine HCL 30 MG CAPSULE.DR PO SCH ×2 (08:37→20:44)
[2022-12-09] MEDS: THIAMINE 100 MG TAB PO SCH (08:37)
[2022-12-09] MEDS: NALTREXONE HCL 50 MG TAB PO SCH (08:37)
[2022-12-09 10:21] LABS: ALT 16 U/L (4-34); AST 22 U/L (14-36); African American GFR (CKD) >90 (>60 ml/min/1.73 sqM); Albumin 4.4 g/dL (3.5-5.0); Alkaline Phosphatase 57 U/L (38-126); Anion Gap 6 mmol/L; Blood Urea Nitrogen 17 mg/dL (7-17); Calcium 9.8 mg/dL (8.4-10.2); Carbon Dioxide 34 mmol/L (22-30); Chloride 97 mmol/L (98-107); Glucose 85 mg/dL (74-99); Non-African American GFR(CKD) >90 (>60 ml/min/1.73 sqM); Potassium 5.1 mmol/L (3.5-5.1); Sodium 137 mmol/L (137-145); Total Bilirubin 0.3 mg/dL (0.2-1.3); Total Protein 7.3 g/dL (6.3-8.2)
[2022-12-09] MEDS: buPROPion XL 150 MG TAB.ER.24H PO SCH (11:20)
[2022-12-09] MEDS: diphenhydrAMINE 25 MG CAP PO PRN (11:21)
--- NOTE | 2022-12-09 13:17 | P.PN ---
Progress Note - Text Progress Note Date: 12/09/22 Interval history: Patient was seen in the hallways today and was agreeable to speak to creative services writer in the office. Patient states that she was working on a puzzle or earlier today. She states that she feels like she is having "brain fog" at this time but states that her anxiety and mood have been improving. she claims she is getting about 7-8 hrs last night, and appetite is improving. She claims that she misses her daughter and her daughter's birthday was yesterday. She states that she is less tearful at this time and feels that the mood is improving. She was concerned about her medications and states that "I can't even drive like this" dealing with the side effects. We spoke about trying to lower the dose and adding in Wellbutrin instead and patient was agreeable to that. At this time she is denying any suicidal or homicidal ideations intent or plan. Denying any auditory or visual hallucinations. Mental status examination: General Appearance: Patient appears to be laying in bed, lethargic, stated age is and cooperative. Patient appears to have fair hygiene and grooming wearing hospital gown with poor eye contact. Behavior: Patient is calmly lying in bed without any agitated behavior. more cooperative. Speech: Patient's speech is fluent and nonpressured. Mood/Affect: Patient reports their mood is "a bit better", affect is congruent and constricted, improving mildly Suicidality/Homicidality: Patient reports having suicidal thoughts, no specific plan. Denying any homicidal ideations. Perceptions: Patient denies any visual hallucinations and denies any auditory hallucinations Though content/process: There is no evidence of any delusional thought content and thought process is linear and goal-directed. [place]. Memory and concentration: AOX3, grossly intact for the purposes of this session Judgment and insight: improving mildly IMPRESSIONS: Major depressive disorder, without psychotic features Alcohol use disorder, severe dependence Nicotine dependence Legal problems PLAN: -Patient is admitted under voluntary status to MHU for stabilization of psyc hiatric symptoms and safety. Patient has signed adult voluntary form and medication consent and is placed in patient's chart. -Medications : cymbalta decreased 30 mg daily at bedtime for anxiety/mood, trazodone 50 mg qhs for insomnia/mood. naltrexone 50 mg daily for etoh cravings. Added Wellbutrin XL 150 mg daily for mood adjunct -vistaril and zyprexa PRN for agitation/aggression -thiamine, MVM for etoh use -NRT - nicotine patch -SW on board for discharge planning. Encourage patient to participate in groups to work on coping skills. currently awaiting to hear back from rehab
[2022-12-09] MEDS: traZODone HCL 50 MG TAB PO SCH (20:45)
[2022-12-10] MEDS: diphenhydrAMINE 25 MG CAP PO PRN ×3 (03:31→19:48)
[2022-12-10] MEDS: LEVOTHYROXINE 88 MCG TAB PO SCH (06:35)
[2022-12-10 07:03] VITALS: RESP 16
[2022-12-10] MEDS ORDERED: DULoxetine HCL 30 MG CAPSULE.DR PO SCH (09:00)
[2022-12-10] MEDS: NICOTINE 14MG/24HR PATCH TRANSDERM SCH (09:05)
[2022-12-10] MEDS: DOXYCYCLINE 100 MG CAP PO SCH ×2 (09:05→19:49)
[2022-12-10] MEDS: THIAMINE 100 MG TAB PO SCH (09:05)
[2022-12-10] MEDS: NALTREXONE HCL 50 MG TAB PO SCH (09:05)
[2022-12-10] MEDS: buPROPion XL 150 MG TAB.ER.24H PO SCH (09:05)
--- NOTE | 2022-12-10 18:01 | P.PN ---
Progress Note - Text Progress Note Date: 12/10/22 Interval history: Patient was seen in the [facility] working on a puzzle and was directable and agreeable to speak with typewriter mechanic. She denies depressed mood or anxiety. She reports feeling a little bit better today but also reports she feels she is still adjusting to her medications, feels like her "mind slowed" from the medications. At this time patient denies any suicidal or homicidal ideation, intent or plan. Denies any auditory or visual hallucinations.Patient denies any side effects from the medications other than her "mind slowed" and has been compliant with meds. Mental status exam: General Appearance: Patient appears to be stated age is alert, directable, and cooperative. Behavior: No agitated behavior. Patient is calm and directable. Speech: Patient's speech is fluent and non-pressured. Normal rate, volume, tone. Mood/Affect: Mood is improving mildly, affect is congruent and constricted. Suicidality/Homicidality: Patient denies having any suicidal or homicidal ideation intent or plan. Perceptions: Patient denies any auditory or visual hallucinations. Though content/process: There is no evidence of any delusional thought content and thought process is linear and goal-directed. Memory and concentration: AOX3, grossly intact for the purposes of this session Judgment and insight: improving mildly Assessment/Plan: Continue with current diagnosis. Patient continues to meet criteria for inpatient psychiatric admission for symptom stabilization and safety. Patient will be maintained on current psychotropic medication regimen. Monitor for medication compliance and for any psychotropic medication side effects. Will continue to monitor ongoing response to treatment. Encouraged participation in milieu.
[2022-12-10] MEDS: DULoxetine HCL 30 MG CAPSULE.DR PO SCH ×2 (19:49→19:50)
[2022-12-10] MEDS: traZODone HCL 50 MG TAB PO SCH (19:49)
[2022-12-11] MEDS: diphenhydrAMINE 25 MG CAP PO PRN ×2 (03:19→11:38)
[2022-12-11] MEDS: LEVOTHYROXINE 88 MCG TAB PO SCH (06:55)
[2022-12-11] MEDS: NICOTINE 14MG/24HR PATCH TRANSDERM SCH (08:27)
[2022-12-11] MEDS: DOXYCYCLINE 100 MG CAP PO SCH ×2 (09:03→20:13)
[2022-12-11] MEDS: NALTREXONE HCL 50 MG TAB PO SCH (09:03)
[2022-12-11] MEDS: THIAMINE 100 MG TAB PO SCH (09:03)
[2022-12-11] MEDS: buPROPion XL 150 MG TAB.ER.24H PO SCH (09:03)
--- NOTE | 2022-12-11 17:50 | P.PN ---
Progress Note - Text Progress Note Date: 12/11/22 Interval history: Patient was seen in the [facility] working on a puzzle again today and was directable and agreeable to speak with ghost writer. She denies depressed mood or anxiety today. She reports feeling better today but still reports feeling like her "mind slowed" from the medications. She is taking Benadryl 25 mg TID PRN for an allergic reaction/itching, and has had 2 doses so far today which is likely contributing to that feeling, however objectively she does not appear slowed. At this time patient denies any suicidal or homicidal ideation, intent or plan. Denies any auditory or visual hallucinations.Patient denies any side effects from the medications other than her "mind slowed" and has been compliant with meds. Mental status exam: General Appearance: Patient appears to be stated age is alert, directable, and cooperative. Behavior: No agitated behavior. Patient is calm and directable. Speech: Patient's speech is fluent and non-pressured. Normal rate, volume, tone. Mood/Affect: Mood is improving mildly, affect is congruent and constricted. Suicidality/Homicidality: Patient denies having any suicidal or homicidal ideation intent or plan. Perceptions: Patient denies any auditory or visual hallucinations. Though content/process: There is no evidence of any delusional thought content and thought process is linear and goal-directed. Memory and concentration: AOX3, grossly intact for the purposes of this session Judgment and insight: improving mildly Assessment/Plan: Continue with current diagnosis. Patient continues to meet criteria for inpatient psychiatric admission for symptom stabilization and safety. Patient will be maintained on current psychotropic medication regimen. Monitor for medication compliance and for any psychotropic medication side effects. Will continue to monitor ongoing response to treatment. Encouraged participation in milieu.
[2022-12-11] MEDS: traZODone HCL 50 MG TAB PO SCH (20:13)
[2022-12-11] MEDS: DULoxetine HCL 30 MG CAPSULE.DR PO SCH (20:21)
[2022-12-12] MEDS: LEVOTHYROXINE 88 MCG TAB PO SCH (06:40)
[2022-12-12 07:03] VITALS: BP 103/51; PULSE 59; TEMP 97.6
[2022-12-12] MEDS: NALTREXONE HCL 50 MG TAB PO SCH (08:50)
[2022-12-12] MEDS: DOXYCYCLINE 100 MG CAP PO SCH ×2 (08:50→20:45)
[2022-12-12] MEDS: THIAMINE 100 MG TAB PO SCH (08:50)
[2022-12-12] MEDS: buPROPion XL 150 MG TAB.ER.24H PO SCH (08:50)
[2022-12-12] MEDS: NICOTINE 14MG/24HR PATCH TRANSDERM SCH (08:53)
--- NOTE | 2022-12-12 10:06 | P.PN ---
Progress Note - Text Progress Note Date: 12/12/22 Interval history: Patient was seen sitting in group today and was agreeable to speak to telegraphic typewriter operator in the office. Patient states that she is doing a bit better today with regard to her mood and anxiety. She states that she is sleeping a bit better at nighttime. Claims that she is still feeling a bit "foggy" however this is improving. We spoke more about the medications and continuing on with him and then having them adjusted at a later time once the medication has about 2-4 weeks to settle in, patient was agreeable to that. She states that her mood and depression have been mildly improving. She wanted to remain on the same dose of medications at this time. She still does not know when she will get into rehab and has not heard back from [place]. At this time she is denying any suicidal or homicidal ideations intent or plan. Denying any auditory or visual hallucinations. Mental status examination: General Appearance: Patient appears to be laying in bed, lethargic, stated age is and cooperative. Patient appears to have fair hygiene and grooming wearing hospital gown with improving eye contact. Behavior: Patient is calmly lying in bed without any agitated behavior. more cooperative. Speech: Patient's speech is fluent and nonpressured. Mood/Affect: Patient reports their mood is "better", affect is congruent, improving mildly Suicidality/Homicidality: Patient reports having suicidal thoughts, no specific plan. Denying any homicidal ideations. Perceptions: Patient denies any visual hallucinations and denies any auditory hallucinations Though content/process: There is no evidence of any delusional thought content and thought process is linear and goal-directed. Memory and concentration: AOX3, grossly intact for the purposes of this session Judgment and insight: improving mildly IMPRESSIONS: Major depressive disorder, without psychotic features Alcohol use disorder, severe dependence Nicotine dependence Legal problems PLAN: -Patient is admitted under voluntary status to MHU for stabilization of psychiatric symptoms and safety. Patient has signed adult voluntary form and medication consent and is placed in patient's chart. -Medications : cymbalta 30 mg daily at bedtime for anxiety/mood, trazodone 50 mg qhs for insomnia/mood. naltrexone 50 mg daily for etoh cravings. continue Wellbutrin XL 150 mg daily for mood adjunct -vistaril and zyprexa PRN for agitation/aggression -thiamine, MVM for etoh use -NRT - nicotine patch -SW on board for discharge planning. Encourage patient to participate in groups to work on coping skills. currently awaiting to hear back from rehab SW to contact rehab today to ensure we have an intake date and likely discharge tomorrow.
[2022-12-12] MEDS: traZODone HCL 50 MG TAB PO SCH (20:45)
[2022-12-12] MEDS ORDERED: DULoxetine HCL 20 MG CAPSULE.DR PO SCH (21:00)
[2022-12-13] MEDS: LEVOTHYROXINE 88 MCG TAB PO SCH (07:45)
[2022-12-13] MEDS: DOXYCYCLINE 100 MG CAP PO SCH (08:30)
[2022-12-13] MEDS: buPROPion XL 150 MG TAB.ER.24H PO SCH (08:30)
[2022-12-13] MEDS: NALTREXONE HCL 50 MG TAB PO SCH (08:30)
[2022-12-13] MEDS: NICOTINE 14MG/24HR PATCH TRANSDERM SCH (08:30)
[2022-12-13] MEDS: THIAMINE 100 MG TAB PO SCH (08:30)
--- NOTE | 2022-12-13 09:35 | P.DS ---
Providers Date of admission: 12/07/22 15:15 Expected date of discharge: 12/13/22 Attending physician: Nash Huang MD Consults: 12/07/22 14:28 Consult Physician Routine Consulting Provider: Rick Arellano Consult Reason/Comments: history and physical Do you want consulting provider notified?: Yes Primary care physician: Vandana Campos - Discharge Diagnosis(es) (1) Major depressive disorder without psychotic features Current Visit: Yes Status: Acute Priority: High (2) Alcohol use disorder, severe, dependence Current Visit: Yes Status: Acute Priority: High (3) Nicotine dependence Current Visit: Yes Status: Acute Priority: Low (4) Legal problem Current Visit: Yes Status: Acute Priority: Medium Hospital Course: Admission HPI: Admission note was completed by publications writer "This patient is a 42-year-old female, currently lives with her 2 kids and a house, she is , 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 Patient was seen last week for psych consultation and as per note "Psychiatry was consulted for night with alcohol intoxication and apparently suicidal ideations. Patient apparently had relapsed on alcohol according to ER report and has been drinking heavily. But alcohol level was 294. Patient was seen today laying in bed was awoken by publications writer. She was fairly depressed and was tearful during the interview. She was claiming that she was drinking heavily since June, states that she was drinking about 1-2 pints of vodka a day. States that she is "stressed lately" and explained that she has charges pending against her for child sexual misconduct and claims that she has upcoming court in January. Claims that she was already arranged for the charges. She was fairly vague about what had occurred and states that "it's all up to the Michele". She states she feels her psychiatric medications are not helping her depression and anxiety and has been taking Librium with alcohol. She states that she has been feeling suicidal however his fairly vague about her plan. She states that "my life is basically over if they contact me" and claims that she does not have much to live for. States that she is feeling depressed crying a lot, endorsing anxiety. She states that when she does withdrawal from alcohol she does have visual hallucinations however not reporting them at this time, has a history of severe withdrawals in the past. States that she is not expressing any auditory hallucinations . denies any paranoia or delusions. Patients admits to using alcohol frequently as noted above, states that she has been the [facility] once in the past. States that she smokes cigarettes daily. He has any other recreational drug use." Patient was seen today for psych assessment. she was seen to have a infection on her arm and was seen by ID and placed on vanco drip. claims that her mood is still depressed, its her daughters birthday. not anxious today. denies any SI or HI, denies any Ah or VH. sleep mildly improved. sleep is improving mildly." Hospital course: Upon admission to the unit patient was directable and agreeable to commence treatment and signed adult voluntary form . Patient got along well with other patients on the unit and followed unit protocol. Patient was compliant with the medications and denied any side effects throughout hospital course. Patient was started on Cymbalta 30 mg daily for mood/anxiety, trazodone 50 mg daily at bedtime for insomnia/mood, naltrexone 50 mg by mouth daily for alcohol cravings, Wellbutrin XL 150 mg daily for mood adjunct. Patient spoke of her stressors and engaged in therapy both group and individual. Patient was also seen by medical team for history and physical exam. Throughout the course of the hospitalization patient gradually improved with regards to mood, anxiety, suicidal thoughts, sleep and returned back to their baseline level of functioning. On the day of discharge patient denied any suicidal or homicidal ideations intent or plan denied any auditory or visual hallucinations. Patient endorsed wanting to live for her health and her sobriety. The patient denied any access to guns or weapons. Patient denied any paranoia and did not endorse any delusions. Patient does have a significant history of substance abuse and was counseled on abstaining from all substances including alcohol and marijuana. Patient was offered substance rehab and was able to get a intake date on day of discharge at [facility]. Patient was also counseled on the medications and need for regular compliance and was encouraged to follow-up with their outpatient appointment for mental health and also for primary care. Erwin worker to help coordinate patient's discharge today to [facility]. Mental status exam: General Appearance: Patient appears to be stated age is alert, pleasant, and cooperative. Patient is in no acute distress and has improved hygiene and grooming Behavior: Patient is calmly seated without any agitated behavior. Speech: Patient's speech is fluent and nonpressured. Mood/Affect: Patient reports their mood is "better", affect is congruent and euthymic. Suicidality/Homicidality: Patient denies having any suicidal or homicidal ideation intent or plan. Perceptions: Patient denies any auditory or visual hallucinations. Though content/process: There is no evidence of any delusional thought content and thought process is linear and goal-directed. more future oriented Memory and concentration: AOX3, grossly intact for the purposes of this session. Can spell "WORLD" backwards correctly. Judgment and insight: improved with guarded prognosis Impression: Major depressive disorder without psychotic features Alcohol use disorder severe dependence Nicotine dependence Legal problems Plan: -Continue with discharge today as patient has improved and stabilized psychiatrically and is not currently an imminent threat to herself and/or others. Patient will remain at chronically elevated risk for harm to self and/or others due to her impulsivity and substance abuse. -Continue medications: Cymbalta 30 mg daily for mood/anxiety, trazodone 50 mg daily at bedtime for insomnia/mood, 50 mg by mouth daily for alcohol cravings, wellbutrin xl 150 mg by mouth daily for mood adjunct. -Patient was counseled on the need for medication compliance and appropriate follow-up at mental health and also primary care for medical issues. Patient verbalized understanding and agreed. -Social work to help coordinate patient discharged today to [facility] re[facility]. Social work also to arrange for patients follow up appointments with [facility] for psychiatric care along with follow up with primary care provider. -Patient counseled on abstaining from recreational drugs and marijuana and alcohol. Was informed/educated on the adverse effects on their physical and mental health. Patient verbally agreed and understood. -Patient was instructed to return to the hospital or seek immediate medical care if their psychiatric or medical symptoms do worsen or reoccur. Allergies Allergy/AdvReac Type Severity Reaction Status Date / Time Sulfa (Sulfonamide Allergy Anaphylaxis Verified 12/02/22 07:48 Antibiotics) Laboratory Results WBC 5.0 k/uL (3.8-10.6) 12/08/22 06:39 RBC 4.28 m/uL (3.80-5.40) 12/08/22 06:39 Hgb 13.6 gm/dL (11.4-16.0) 12/08/22 06:39 Hct 40.8 % (34.0-46.0) 12/08/22 06:39 MCV 95.4 fL (80.0-100.0) 12/08/22 06:39 MCH 31.7 pg (25.0-35.0) 12/08/22 06:39 MCHC 33.2 g/dL (31.0-37.0) 12/08/22 06:39 RDW 13.2 % (11.5-15.5) 12/08/22 06:39 Plt Count 198 k/uL (150-450) 12/08/22 06:39 MPV 7.9 12/08/22 06:39 Neutrophils % 64 % 12/08/22 06:39 Lymphocytes % 23 % 12/08/22 06:39 Monocytes % 6 % 12/08/22 06:39 Eosinophils % 6 % 12/08/22 06:39 Basophils % 0 % 12/08/22 06:39 Neutrophils # 3.2 k/uL (1.3-7.7) 12/08/22 06:39 Lymphocytes # 1.1 k/uL (1.0-4.8) 12/08/22 06:39 Monocytes # 0.3 k/uL (0-1.0) 12/08/22 06:39 Eosinophils # 0.3 k/uL (0-0.7) 12/08/22 06:39 Basophils # 0.0 k/uL (0-0.2) 12/08/22 06:39 Sodium 137 mmol/L (137-145) 12/09/22 09:30 Potassium 5.1 mmol/L (3.5-5.1) 12/09/22 09:30 Chloride 97 mmol/L (98-107) L 12/09/22 09:30 Carbon Dioxide 34 mmol/L (22-30) H 12/09/22 09:30 Anion Gap 6 mmol/L 12/09/22 09:30 BUN 17 mg/dL (7-17) 12/09/22 09:30 Creatinine 0.69 mg/dL (0.52-1.04) 12/09/22 09:30 Est GFR (CKD-EPI)AfAm >90 (>60 ml/min/1.73 sqM) 12/09/22 09:30 Est GFR (CKD-EPI)NonAf >90 (>60 ml/min/1.73 sqM) 12/09/22 09:30 Glucose 85 mg/dL (74-99) 12/09/22 09:30 Calcium 9.8 mg/dL (8.4-10.2) 12/09/22 09:30 Total Bilirubin 0.3 mg/dL (0.2-1.3) 12/09/22 09:30 AST 22 U/L (14-36) 12/09/22 09:30 ALT 16 U/L (4-34) 12/09/22 09:30 Alkaline Phosphatase 57 U/L (38-126) 12/09/22 09:30 Total Protein 7.3 g/dL (6.3-8.2) 12/09/22 09:30 Albumin 4.4 g/dL (3.5-5.0) 12/09/22 09:30 TSH 6.060 mIU/L (0.465-4.680) H 12/08/22 06:39 Vital Signs Temp 97.6 F 12/12/22 06:47 Pulse 59 L 12/12/22 06:47 Resp 16 12/12/22 06:47 BP 103/51 12/12/22 06:47 Pulse Ox 97 12/12/22 06:47 FiO2 Plan - Discharge Summary Discharge Rx Participant: No New Discharge Prescriptions: New traZODone HCL [Desyrel] 50 mg PO HS 30 Days #30 tab Ibuprofen [Motrin] 600 mg PO Q6HR PRN tab PRN Reason: Moderate Pain (Scale 4 To 6) Naltrexone HCl [Revia] 50 mg PO DAILY 30 Days #30 tab Doxycycline [Vibramycin] 100 mg PO BID 3 Days #5 cap Thiamine [Vitamin B-1] 100 mg PO DAILY 30 Days #30 tab buPROPion XL [Wellbutrin XL] 150 mg PO DAILY 30 Days #30 tab diphenhydrAMINE [Benadryl] 25 mg PO BID PRN 14 Days #28 cap PRN Reason: Itching DULoxetine HCL [Cymbalta] 20 mg PO HS 30 Days #30 cap Nicotine 14Mg/24Hr Patch [Habitrol] 1 patch TRANSDERM DAILY 14 Days #14 patch Continue Levothyroxine Sodium [Synthroid] 88 mcg PO DAILY 30 Days #30 tab Discontinued chlordiazePOXIDE HCl [Librium] 10 mg PO TID PRN PRN Reason: Alcohol Withdrawal DULoxetine HCL [Cymbalta] 30 mg PO DAILY cap Ibuprofen [Motrin] 600 mg PO TID tab diazePAM [Valium] 5 mg PO TID tab traZODone HCL [Desyrel] 50 mg PO HS tab Thiamine [Vitamin B-1] 100 mg PO DAILY tab Doxycycline [Vibramycin] 100 mg PO BID 7 Days #14 capsule Discharge Medication List DULoxetine HCL [Cymbalta] 20 mg PO HS 30 Days #30 cap 12/12/22 [Rx] Doxycycline [Vibramycin] 100 mg PO BID 3 Days #5 cap 12/12/22 [Rx] Ibuprofen [Motrin] 600 mg PO Q6HR PRN tab 12/12/22 [Rx] Levothyroxine Sodium [Synthroid] 88 mcg PO DAILY 30 Days #30 tab 12/12/22 [Rx] Naltrexone HCl [Revia] 50 mg PO DAILY 30 Days #30 tab 12/12/22 [Rx] Nicotine 14Mg/24Hr Patch [Habitrol] 1 patch TRANSDERM DAILY 14 Days #14 patch 12/12/22 [Rx] Thiamine [Vitamin B-1] 100 mg PO DAILY 30 Days #30 tab 12/12/22 [Rx] buPROPion XL [Wellbutrin XL] 150 mg PO DAILY 30 Days #30 tab 12/12/22 [Rx] diphenhydrAMINE [Benadryl] 25 mg PO BID PRN 14 Days #28 cap 12/12/22 [Rx] traZODone HCL [Desyrel] 50 mg PO HS 30 Days #30 tab 12/12/22 [Rx] Follow up Appointment(s)/Referral(s): [facility] [Outside] - 12/13/22 11:00 am (intake) [facility] [NON-STAFF] - 1 Week Patient Instructions/Handouts: How to Stop Smoking (DC), Depression (DC), Anxiety (GEN) Activity/Diet/Wound Care/Special Instructions: Avoid the use of street drugs and alcohol. Take all medications as prescribed. When you are in need of refills on your medications, please contact your medical provider and/or outpatient psychiatrist/provider to have this done. Please go to your scheduled outpatient appointment for aftercare treatment. If symptoms return or become worse, call the crisis line at and/or go to the nearest emergency room for evaluation. National Suicide Hotline 988. Discharge Disposition: OTHER INSTITUTION NOT DEFINED
--- NOTE | 2022-12-13 20:57 | PN ---
PROGRESS NOTE CHIEF COMPLAINT: Major depression and alcoholism. HISTORY OF PRESENT ILLNESS: This lady is doing better. She is still going to be inpatient for several more days. REVIEW OF SYSTEMS: She denies any headaches, chest pain, shortness of breath, abdominal pain, DTs, etc. Past medical history, family history, personal and social histories are otherwise unremarkable or unchanged. PHYSICAL EXAMINATION: VITAL SIGNS: Normal HEAD, EARS, EYES, NOSE, MOUTH AND THROAT: Normal. CHEST: Clear. CARDIAC: Normal. ABDOMEN: Flat, soft, nontender without visceromegaly or masses. Bowel sounds are present. EXTREMITIES: Normal. NEUROLOGICALLY: She is intact. She has been admitted to the hospital with diagnoses, 1. Major depression. 2. Chronic alcoholism. PLAN: Continue with her psychiatric management until she is safe for discharge and then we will follow her up in the office. MMRENNYL / MIGUELINAN: [id number] /
== END 2022-12-13 10:10 | disposition home or self-care (01) | DRG 754 ==
LOC: 3MHU 15:15
PROVIDERS: ADMIT Psychiatry & Neurology Psychiatry; ATTEND Psychiatry & Neurology Psychiatry
DX: F32.9 Major depressive disorder, single episode, unspecified (principal); R45.851 Suicidal ideations; F17.210 Nicotine dependence, cigarettes, uncomplicated; F41.9 Anxiety disorder, unspecified; G47.00 Insomnia, unspecified; Y90.8 Blood alcohol level of 240 mg/100 ml or more; Z63.72 Alcoholism and drug addiction in family; Z65.3 Problems related to other legal circumstances; Z79.899 Other long term (current) drug therapy; Z81.1 Family history of alcohol abuse and dependence; F10.20 Alcohol dependence, uncomplicated; Z63.5 Disruption of family by separation and divorce; Z28.21 Immunization not carried out because of patient refusal; Z88.2 Allergy status to sulfonamides
CPT/HCPCS: 80048; 80053; 84443; 85025